=== PATIENT | female | born 1980 | race Caucasian/White ===

== ENCOUNTER 2017-06-19 12:32 | Emergency (ER) | payer OTHER ==
[2017-06-19 13:43] VITALS: BP 112/68; PULSE 86; TEMP 98.4; BMI 21.7
--- NOTE | 2017-06-19 14:43 | PDOC ---
History of Present Illness - General Chief Complaint: Headache Stated Complaint: HEADACHE Time Seen by Provider: 06/19/17 14:25 History Source: Patient Exam Limitations: No Limitations - History of Present Illness Initial Comments: 06/19/17 14:56 37 year old female with history of headaches presents to the ED with left parietal and occipital along with retro-orbital pressure since last Tuesday. Patient states took Motrin 400mg last night and this morning without improvement. Patient also complaining of mild nausea with photo sensitivity without phono sensitivity. Patient states her menstrual cycle did not come this month and is concerned she may be although she has no complaints of abdominal pain, breast tenderness, vaginal bleeding, or lower abdominal pressure. Timing/Duration: reports: 1 week Severity: Yes: moderate Associated Symptoms: reports: other (headache). denies: nausea/vomiting, weakness Past History - Travel Traveled outside of the country in the last 30 days: No Close contact w/someone who was outside of country & ill: No - Past Medical History Allergies/Adverse Reactions: Allergies Allergy/AdvReac Type Severity Reaction Status Date / Time aspirin AdvReac Intermediate Verified 06/19/17 13:37 Home Medications: Ambulatory Orders Unobtainable [Unobtainable] 06/19/17 Hypercholesterolemia: Yes - Surgical History Cholecystectomy: Yes - Reproductive History LMP Normal: Yes Is Patient Now?: No (#): 3 Para: 2 Cervical CA: No Dysfunctional Uterine Bleeding: No Ectopic : No Endometrial CA: No Polycystic Ovaries: No Therapeutic (s) & number: No Tubal Ligation: No Spontaneous : 0 - Immunization History Immunization Up to Date: Yes - Suicide/Smoking/Psychosocial Hx Smoking History: Never smoked Have you smoked in the past 12 months: No Information on smoking cessation initiated: No Hx Alcohol Use: No Drug/Substance Use Hx: No Substance Use Type: None Hx Substance Use Treatment: No Patient Lives Alone: No Lives with/in: spouse/SO Neuro Specific PMHX - Complaint Specific PMHX Migraine: No Review of Systems - Review of Systems Able to Perform ROS?: Yes Constitutional: No: Symptoms Reported HEENTM: No: Symptoms Reported Respiratory: No: Symptoms reported Cardiac (ROS): No: Symptoms Reported ABD/GI: Yes: Nausea : No: Symptoms Reported Neurological: Yes: Headache Endocrine: No: Symptoms Reported Hematologic/Lymphatic: No: Symptoms Reported *Physical Exam - Vital Signs Last Vital Signs Temp Pulse Resp BP Pulse Ox 98.4 F 86 16 112/68 100 06/19/17 13:38 06/19/17 13:38 06/19/17 13:38 06/19/17 13:38 06/19/17 13:38 - Physical Exam General Appearance: Yes: Nourished, Appropriately Dressed. No: Apparent Distress HEENT: positive: EOMI, ARTURO, Pharynx Normal. negative: Pale Conjunctivae Neck: positive: Supple. negative: Tender, Decreased range of motion Gastrointestinal/Abdominal: positive: Soft. negative: Tenderness Extremity: positive: Normal Capillary Refill Integumentary: positive: Normal Color, Warm, Moist Neurologic: positive: Motor Strength 5/5 (ambulatory) Medical Decision Making - Medical Decision Making 06/19/17 14:50 Patient complains of headache with known presentation but states was not relieved with Motrin 2 which it normally is by the second or third dose. Patient also unsure if she is stating she missed her last menstrual period. Patient examined had no neural focal deficits or acute findings. Patient ordered for urine and then can receive Toradol IM along with Zofran. 06/19/17 16:07 Urine preg Negative. Patient states feeling much better after receiving medication. Patient be discharged home with recommendations to take Tylenol. *DC/Admit/Observation/Transfer Diagnosis at time of Disposition: Headache Qualifiers: Headache type: unspecified Headache chronicity pattern: episodic headache Intractability: intractable Qualified Code(s): R51 - Headache; R51 - Headache - Discharge Dispostion Disposition: HOME Condition at time of disposition: Improved - Referrals Referrals: Jada Martinez MD [Primary Care Provider] - - Patient Instructions Printed Discharge Instructions: DI for Headache Additional Instructions: Please take Tylenol 975 mg by mouth every 8 hours for headache. Drink plenty of fluids. Avoid triggers such as loud noise or bright room.
[2017-06-19] MEDS ORDERED: ONDANSETRON *ODT* 4 MG TABLET SL ONE (15:00)
[2017-06-19] MEDS ORDERED: KETOROLAC TROMETHAMINE 60 MG/2 ML VIAL IM ONE (15:00)
[2017-06-19] MEDS ORDERED: KETOROLAC TROMETHAMINE 60 MG/2 ML VIAL ONE (15:18)
[2017-06-19] MEDS ORDERED: ONDANSETRON *ODT* 4 MG TABLET ONE (15:18)
== END 2017-06-19 16:23 | disposition home or self-care (01) ==
LOC: JERFT 12:32
PROC: 3E0233Z Introduction of Anti-inflammatory into Muscle, Percutaneous Approach (ICD-10-PCS; principal; 2017-06-19)
DX: R51 Headache (principal)
CPT/HCPCS: 84703; 96372; 99281-25

== ENCOUNTER 2018-06-17 08:37 | Emergency (ER) | payer OTHER ==
--- NOTE | 2018-06-17 09:06 | PDOC ---
History of Present Illness - General History Source: Patient Exam Limitations: No Limitations - History of Present Illness Initial Comments: 06/17/18 10:00 38-year-old female, , with a past medical history of HLD, gallstones, who presents to the ED with 3 days of epigastric pain. Patient states the pain began suddenly and was initially intermittent but is now constant, pressure- like in sensation, 9/10 in severity, radiating to her back, unaffected by food consumption, and exacerbated with turning to either side. She contacted her PCP , Dr. Linares, who prescribed 240 mg omeprazole, which has helped to alleviate the pain. She has also tried taking mylanta which usually helps to alleviate any mild stomach pains she experiences, but this time it did not help. Patient s pain is accompanied by nausea and lightheadedness but she denies any vomiting. The patient has been been able to eat and drink but states that she gets full fast. She reports that the pain is similar to her previous episode of gallstones. She reports having a cholecystectomy performed in 2008. Patients last bowel movement was this morning and was normal. Patient states that she is sexually active with one partner and denies any history of sexually transmitted diseases. Last menstrual period was on June 01 and was normal. She denies any vaginal bleeding or vaginal discharge. She also endorses suprapubic pain and has followed up with [facility] doctor who had imaging studies ordered that revealed a small ovarian cyst. The patient denies any fever, chills, cough, vomiting, diarrhea, or constipation. She denies any chest pain or shortness of breath. She denies any dysuria, frequency, urgency, hesitancy, or hematuria. Allergies: aspirin. Social History: None reported. Surgical History: Cholecystectomy. PCP: Dr. Linares <Shannon Logan - Last Filed: 06/17/18 12:13> <Tiffani Loyd - Last Filed: 06/17/18 13:04> - General Chief Complaint: Pain, Acute Stated Complaint: ABDOMINAL PAIN Time Seen by Provider: 06/17/18 09:06 Past History <Shannon Logan - Last Filed: 06/17/18 12:13> - Past Medical History COPD: No CHF: No Hypercholesterolemia: Yes - Surgical History Cholecystectomy: Yes - Reproductive History (#): 3 Para: 2 Cervical CA: No Dysfunctional Uterine Bleeding: No Ectopic : No Endometrial CA: No Polycystic Ovaries: No Therapeutic (s) & number: No Tubal Ligation: No Spontaneous : 0 - Immunization History Immunization Up to Date: Yes - Suicide/Smoking/Psychosocial Hx Smoking History: Never smoked Have you smoked in the past 12 months: No Information on smoking cessation initiated: No Hx Alcohol Use: No Drug/Substance Use Hx: No Substance Use Type: None Hx Substance Use Treatment: No <Tiffani Loyd - Last Filed: 06/17/18 13:04> - Past Medical History Allergies/Adverse Reactions: Allergies Allergy/AdvReac Type Severity Reaction Status Date / Time aspirin AdvReac Intermediate Verified 06/17/18 08:42 Home Medications: Ambulatory Orders NK [No Known Home Medication] 06/17/18 Review of Systems - Review of Systems Able to Perform ROS?: Yes Comments:: 06/17/18 10:00 GENERAL/CONSTITUTIONAL: No fever or chills. No weakness. HEAD, EYES, EARS, NOSE AND THROAT: No change in vision. No ear pain or discharge. No sore throat. CARDIOVASCULAR: (+)Lightheadedness. No chest pain or shortness of breath. RESPIRATORY: No cough, wheezing, or hemoptysis. GASTROINTESTINAL: (+)Nausea, abdominal pain. No vomiting, diarrhea or constipation. GENITOURINARY: No dysuria, frequency, or change in urination. MUSCULOSKELETAL: (+)Back pain. No joint swelling or pain. No neck pain. SKIN: No rash NEUROLOGIC: No headache, vertigo, loss of consciousness, or change in strength/ sensation. ENDOCRINE: No increased thirst. No abnormal weight change. HEMATOLOGIC/LYMPHATIC: No anemia, easy bleeding, or history of blood clots. ALLERGIC/IMMUNOLOGIC: No hives or skin allergy. <Shannon Logan - Last Filed: 06/17/18 12:13> *Physical Exam - Vital Signs Last Vital Signs Temp Pulse Resp BP Pulse Ox 97.3 F L 79 18 129/80 100 06/17/18 08:51 06/17/18 08:51 06/17/18 08:51 06/17/18 08:51 06/17/18 08:51 - Physical Exam Comments: 06/17/18 10:02 GENERAL: Awake, alert, and fully oriented, in no acute distress HEAD: No signs of trauma EYES: PERRLA, EOMI, sclera anicteric, conjunctiva clear ENT: Auricles normal inspection, hearing grossly normal, nares patent, oropharynx clear without exudates. Moist mucosa NECK: Normal ROM, supple, no lymphadenopathy, JVD, or masses LUNGS: Breath sounds equal, clear to auscultation bilaterally. No wheezes, and no crackles HEART: Regular rate and rhythm, normal S1 and S2, no murmurs, rubs or gallops ABDOMEN: (+)Tenderness to palpation of the epigastrium. Soft, normoactive bowel sounds. No guarding, no rebound. No masses. EXTREMITIES: Normal range of motion, no edema. No clubbing or cyanosis. No cords, erythema, or tenderness NEUROLOGICAL: Cranial nerves II through XII grossly intact. Normal speech, normal gait SKIN: Warm, Dry, normal turgor, no rashes or lesions noted. <Shannon Logan - Last Filed: 06/17/18 12:13> - Vital Signs Last Vital Signs Temp Pulse Resp BP Pulse Ox 97.3 F L 79 18 129/80 100 06/17/18 08:51 06/17/18 08:51 06/17/18 08:51 06/17/18 08:51 06/17/18 08:51 <Tiffani Loyd - Last Filed: 06/17/18 13:04> ED Treatment Course - LABORATORY CBC & Chemistry Diagram: 06/17/18 09:40 06/17/18 09:40 - ADDITIONAL ORDERS Additional order review: Laboratory Results 06/17/18 09:03 Urine Color Yellow Urine Appearance Clear Urine pH 8.5 H Ur Specific [place] 1.020 Urine Protein Negative Urine Glucose (UA) Negative Urine Ketones Negative Urine Blood 1+ H Urine Nitrite Negative Urine Bilirubin Negative Urine Urobilinogen 0.2 Ur Leukocyte Esterase Negative 06/17/18 09:40 RBC 4.59 MCV 86.3 MCHC 33.2 RDW 13.4 MPV 8.5 Neutrophils % 65.9 Lymphocytes % 27.2 D Monocytes % 5.5 Eosinophils % 0.7 Basophils % 0.7 - RADIOLOGY Radiology Studies Ordered: 06/17/18 12:14 Abdomen/Pelvis CT was reviewed by Dr. Loyd and over-read by Radiology. Sequential axial images were obtained from the domes of the diaphragms through the symphysis pubis following the administration of intravenous contrast material. The lung bases are clear. The liver, spleen, pancreas, adrenal glands and kidneys demonstrate no significant abnormalities. The gallbladder has been removed. There is prominence of biliary tree without obvious obstruction. There is no evidence of pneumoperitoneum, bowel obstruction or intra-abdominal abscess. There is no CT evidence of acute appendicitis or diverticulitis. There is no evidence of intra-abdominal or retroperitoneal lymphadenopathy or fluid collections. Examination of the pelvis demonstrates no evidence of pelvic masses, fluid collections or lymphadenopathy. There is a 2.7 cm left ovarian cyst. There is no evidence of acute bony abnormalities. IMPRESSION: No evidence of acute pathology within the abdomen or pelvis. <Shannon Logan - Last Filed: 06/17/18 12:13> - LABORATORY CBC & Chemistry Diagram: 06/17/18 09:40 06/17/18 09:40 <Tiffani Loyd - Last Filed: 06/17/18 13:04> Medical Decision Making - Medical Decision Making 06/17/18 13:00 Pt presents to the ED complaining of epigastric pain. Initial differential included pancreatitis, gastritis, less likely ectopic . Labs including lipase and u preg were negative, but patient had persistent pain. Ct performed to rule out other intrabdominal pathology and is negative. Will discharge home with follow up with PMD. <Tiffani Loyd - Last Filed: 06/17/18 13:04> *DC/Admit/Observation/Transfer - Attestations Scribe Attestion: 06/17/18 10:03 Documentation prepared by Shannon Logan, acting as medical data entry clerk for Tiffani Loyd MD. <Shannon Logan - Last Filed: 06/17/18 12:13> - Discharge Dispostion Decision to Admit order: No <Tiffani Loyd - Last Filed: 06/17/18 13:04> Diagnosis at time of Disposition: Abdominal pain Qualifiers: Abdominal location: epigastric Qualified Code(s): R10.13 - Epigastric pain - Discharge Dispostion Disposition: HOME Condition at time of disposition: Good - Patient Instructions Printed Discharge Instructions: DI for Abdominal Pain-Adult Additional Instructions: return to the ED for severe pain, pain with nausea and vomiting, pain with fever , other new or worsening symptoms. Make sure that you call your doctor for follow up on Tuesday.
[2018-06-17 09:27] LABS: PH,URINE 8.5 (5.0-8.0); URINE APPEARANCE Clear; URINE BILIRUBIN Negative (<2.0 mg/dL); URINE COLOR Yellow; URINE GLUCOSE (UA) Negative (NEGATIVE); URINE KETONE Negative (NEGATIVE); URINE LEUK ESTERASE Negative (NEGATIVE); URINE NITRITE Negative (NEGATIVE); URINE PROTEIN Negative (NEGATIVE); URINE UROBILINOGEN 0.2 mg/dL (0.2-1.0)
[2018-06-17] MEDS ORDERED: FAMOTIDINE 20 MG/50 ML IVPB 20 MG/50 ML MG IVPB ONE ×2 (09:42→09:44)
[2018-06-17 09:53] VITALS: BMI 25.4
[2018-06-17 09:56] LABS: BASO % 0.7 % (0-2.0); EOS % 0.7 % (0-4.5); HEMATOCRIT 39.6 % (32.4-45.2); HEMOGLOBIN 13.2 GM/dL (10.7-15.3); LYMPH % 27.2 % (8-40); MCH 28.7 pg (25.7-33.7); MCHC 33.2 g/dl (32.0-36.0); MEAN CELL VOLUME 86.3 fl (80-96); MEAN PLT VOLUME 8.5 fl (7.5-11.1); MONO % 5.5 % (3.8-10.2); NEUT % 65.9 % (42.8-82.8); PLATELET COUNT 485 K/MM3 (134-434); RBC 4.59 M/mm3 (3.60-5.2); RDW 13.4 % (11.6-15.6); WHITE BLOOD COUNT 10.4 K/mm3 (4.0-10.0)
[2018-06-17 10:05] LABS: EPI CELLS RARE /HPF (FEW); URINE BACTERIA RARE /hpf (NONE SEEN); URINE MUCUS RARE
[2018-06-17] MEDS ORDERED: ACETAMINOPHEN 1000 MG/100 ML VIAL (NON FORMULARY) IVPB ONE (10:29)
[2018-06-17] MEDS ORDERED: ACETAMINOPHEN INJECTION 100 ML IVPB ONE (10:34)
[2018-06-17 10:41] LABS: ALBUMIN 3.4 g/dl (3.4-5.0); ALK PHOS 96 U/L (45-117); ANION GAP 10 MMOL/L (8-16); BILIRUBIN,TOTAL 0.6 mg/dL (0.2-1); BLOOD UREA NITROGEN 7 mg/dL (7-18); CALCIUM 8.7 mg/dL (8.5-10.1); CHLORIDE 108 mmol/L (98-107); CO2 21 mmol/L (21-32); CREATININE 0.6 mg/dL (0.55-1.3); GLUCOSE,RANDOM 69 mg/dL (74-106); LIPASE 122 U/L (73-393); POTASSIUM 4.8 mmol/L (3.5-5.1); SGOT/AST 19 U/L (15-37); SGPT/ALT 24 U/L (13-61); SODIUM 139 mmol/L (136-145)
[2018-06-17 11:03] LABS: HCG,QUALITATIVE URINE Negative
[2018-06-17] MEDS ORDERED: morphine CARPU-JECT 4 MG/1 ML DISP.SYRIN IVPUSH ONE (12:25)
[2018-06-17] MEDS ORDERED: morphine SULFATE 4 MG/ML VIAL ONE (12:37)
[2018-06-17 13:19] VITALS: BP 134/86; PULSE 78; TEMP 98
== END 2018-06-17 13:19 | disposition home or self-care (01) ==
LOC: JER 08:37
PROC: 3E033GC Introduction of Other Therapeutic Substance into Peripheral Vein, Percutaneous Approach (ICD-10-PCS; principal; 2018-06-17)
PROC: 3E033NZ Introduction of Analgesics, Hypnotics, Sedatives into Peripheral Vein, Percutaneous Approach (ICD-10-PCS; 2018-06-17)
PROC: 3E033NZ Introduction of Analgesics, Hypnotics, Sedatives into Peripheral Vein, Percutaneous Approach (ICD-10-PCS; 2018-06-17)
DX: R10.13 Epigastric pain (principal); E78.5 Hyperlipidemia, unspecified; Z87.19 Personal history of other diseases of the digestive system
CPT/HCPCS: 36415; 74177-TC; 80053; 81003; 81015; 83690; 84703; 85025; 96365; 96375; 99283-25; J0131

== ENCOUNTER 2018-12-19 11:07 | Day surgery (SDC) | payer OTHER ==
[2018-12-19 12:19] VITALS: BMI 25.0
[2018-12-19] MEDS ORDERED: ACETAMINOPHEN 325 MG TABLET (FP) ONE (14:44)
[2018-12-19 14:45] VITALS: TEMP 97.5
[2018-12-19 15:46] VITALS: BP 112/74; PULSE 79
--- NOTE | 2018-12-21 16:01 | PATH ---
Surgical Pathology Report Patient Name: MIRLANDE COPE [facility]. Rec. #: [id number] /Age/Gender: 1980 (Age: 38) / F Account: [id number] Location: ASU-ENDOSCOPY Taken: 12/19/2018 Received: 12/20/2018 Reported: 12/21/2018 Physicians: Sammy Gilliland D.O. Specimen(s) Received A: RIGHT COLON BX B: TRANSVERSE COLON BX C: DESCENDING COLON BX D: SIGMOID COLON E: RECTUM Clinical History Diarrhea, abdominal pain Postoperative diagnosis: Diverticulosis Final Diagnosis A. RIGHT COLON, BIOPSY: COLONIC MUCOSA WITH NO SIGNIFICANT PATHOLOGIC CHANGE. NO HISTOLOGIC EVIDENCE OF COLITIS. B. TRANSVERSE COLON, BIOPSY: COLONIC MUCOSA WITH NO SIGNIFICANT PATHOLOGIC CHANGE. NO HISTOLOGIC EVIDENCE OF COLITIS. C. DESCENDING COLON, BIOPSY: COLONIC MUCOSA WITH NO SIGNIFICANT PATHOLOGIC CHANGE. NO HISTOLOGIC EVIDENCE OF COLITIS. D. SIGMOID COLON, BIOPSY: COLONIC MUCOSA WITH NO SIGNIFICANT PATHOLOGIC CHANGE. NO HISTOLOGIC EVIDENCE OF COLITIS. E. RECTUM, BIOPSY: COLONIC MUCOSA WITH NO SIGNIFICANT PATHOLOGIC CHANGE. NO HISTOLOGIC EVIDENCE OF PROCTITIS. Electronically Signed Floyd Marquez M.D. Gross Description A. Received in formalin, labeled "biopsy right colon" are 2 torres, irregular portions of soft tissue averaging 0.3 cm. in greatest dimension. The specimens are submitted in toto in one cassette. B. Received in formalin, labeled "biopsy transverse colon" are 3 torres, irregular portions of soft tissue ranging from 0.2-0.5 cm. in greatest dimension. The specimens are submitted in toto in one cassette. C. Received in formalin, labeled "biopsy descending colon" are 3 torres, irregular portions of soft tissue ranging from 0.1-0.5 cm. in greatest dimension. The specimens are submitted in toto in one cassette. D. Received in formalin, labeled "biopsy sigmoid colon" is a torres, irregular portion of soft tissue measuring 0.5 cm. in greatest dimension. The specimen is submitted in toto in one cassette. E. Received in formalin, labeled "biopsy rectum" are 3 torres, irregular portions of soft tissue ranging from 0.2-0.5 cm. in greatest dimension. The specimens are submitted in toto in one cassette. 12/20/2018 saudi12/20/2018
== END 2018-12-19 15:32 | disposition home or self-care (01) ==
LOC: JASU-ENDO 11:07
PROVIDERS: ATTEND Internal Medicine Gastroenterology
PROC: 0DBE8ZX Excision of Large Intestine, Via Natural or Artificial Opening Endoscopic, Diagnostic (ICD-10-PCS; principal; 2018-12-19 11:30)
DX: K57.30 Diverticulosis of large intestine without perforation or abscess without bleeding (principal); K64.8 Other hemorrhoids
CPT/HCPCS: 84703; 87045; 87046; 87177; 87186; 87209; 88305-TC

== ENCOUNTER 2019-02-05 18:23 | Emergency (ER) | payer OTHER | END 2019-02-06 00:02 | disposition home or self-care (01) | LOC: JER 02-06 00:02 | DX: R07.9 Chest pain, unspecified (principal); R51 Headache ==

== ENCOUNTER 2019-07-14 15:22 | Observation (INO) | payer OTHER ==
--- NOTE | 2019-07-14 17:36 | PDOC ---
Attending Attestation - Resident Resident Name: Marty March - ED Attending Attestation I have performed the following: I have examined & evaluated the patient, The case was reviewed & discussed with the resident, I agree w/resident's findings & plan, Exceptions are as noted - HPI HPI: 07/14/19 17:34 Ms. Jose L Maurer is a 39 yo F who presents to the ER with a complaint of weakness and numbness Patient was in her usual state of health while at home she developed first a headache followed by new neurological signs and symptoms Patient notes that the entire right side of her body feels very cold This is coming in waves It is actually not pain, it is a sensation of cold As a result of her symptoms, patient feels weak Patient has had no prior episodes like this. No head trauma, no neck trauma No nausea, vomiting Patient denies chest pain, palpitations, shortness of breath Patient denies recent stressful events in her life Patient denies use of drugs or alcohol (this was confirmed by her boyfriend) 07/14/19 17:52 - Physicial Exam PE: 07/14/19 17:36 GENERAL: The patient is in no acute distress. ENT: Ears normal, nares patent, oropharynx clear without exudates. Moist mucous membranes. NECK: Normal range of motion, supple LUNGS: Breath sounds equal, clear to auscultation bilaterally. No wheezes, and no crackles. HEART:Regular rate and rhythm, normal S1 and S2 without murmur, rub or gallop. ABDOMEN: Soft, nontender, normoactive bowel sounds. EXTREMITIES: Normal range of motion, no edema. NEUROLOGICAL: Cranial nerves II through XII grossly intact. Normal speech. See NIHSS SKIN: Warm, Dry, normal turgor, no rashes or lesions noted. - Medical Decision Making 07/14/19 17:59 At this moment, patient presents to the emergency department with other new neurological complaints NIHSS is 1 Patient upon observation is having waves of an overwhelming sense of cold on her entire right side, without weakness No history of MS, or other neurological dysfunction Code montelongo called We will send lab Awaiting CT report Awaiting report of lab We do urine toxicology We will also give a small dose of Ativan We will admit 07/14/19 18:07 FINDINGS: The brain parenchymal architecture appears normal, with preservation of the cunningham -white differentiation. There is no acute intracranial hemorrhage, mass effect or midline shift. No abnormal intra-axial or extra-axial fluid collection is seen. The periventricular white matter is unremarkable. The ventricles and basilar cisterns are maintained. The bones of the calvarium and imaged skull base demonstrate no acute abnormality. The imaged paranasal sinuses and mastoid air cells : Partial opacification of the right ethmoid air cells. IMPRESSION: 1. No acute territorial infarct, hemorrhage, or space-occupying mass 07/14/19 18:07 Pt states she is starting to feel better 07/14/19 18:58 EKG: Twelve-lead EKG was performed and reviewed by me. There is normal sinus rhythm with a normal rate. The axis is normal. The intervals are normal. There are no ST or T wave abnormalities. Impression: Normal twelve-lead EKG NIH Stroke Scale - Last Known Well Date/Time & Onset Date Last Known Well: 07/14/19 Time Last Known Well: 14:30 - Initial Evaluation Level of consciousness: Alert Ask patient the month and their age: Answers both correctly Ask patient to open & close eyes; make fist and let go: Obeys both correctly Best gaze (horizontal eye movement): Normal Visual field testing: No visual field loss Facial paresis (Show teeth/raise eyebrows/close eyes tight): Normal symmetrical movement Motor Function: Left Arm: Normal Motor Function: Right Arm: Normal (extends arm 90 (or 45) degrees for 10 seconds without drift Motor Function: Left Leg: Normal (extends leg 30 degrees for 5 seconds without drift) Motor Function: Right Leg: Drift Limb Ataxia: No ataxia Sensory(Use pinprick test arms,legs,trunk,face/side to side): Normal Best language (Describe picture, name items, read sentences): No Aphasia Dysarthria (read several words): Normal articulation Extinction and Inattention: No abnormality - Total Score NIH Stroke Scale Score: 1
[2019-07-14] MEDS ORDERED: SODIUM CHLORIDE 1,000 ML IV SCH (17:45)
--- NOTE | 2019-07-14 19:01 | PDOC ---
History of Present Illness - General Chief Complaint: CVA/TIA Stated Complaint: RIGHT SIDE NUMBNESS Time Seen by Provider: 07/14/19 17:24 History Source: Patient Exam Limitations: No Limitations - History of Present Illness Initial Comments: 07/14/19 21:33 39 yo female no sig pmh presents to the ED with sudden onset headache and right sided weakness and numbness with intermittent coldness. Last well known 2 30 pm. Pt reports resting at home when the stated symptoms began and proceeded to the ED. Pt does not have hx of SALAS, seizures, recent trauma, FHX seizures, anxiety, depression, pt has never had a similar episode in the past. Denies recent travel, recent illness, CP, SOB, abdominal pain, back pain NIH Stroke Scale - Last Known Well Date/Time & Onset Date Last Known Well: 07/14/19 Time Last Known Well: 14:30 - Initial Evaluation Level of consciousness: Alert Ask patient the month and their age: Answers both correctly Ask patient to open & close eyes; make fist and let go: Obeys both correctly Best gaze (horizontal eye movement): Normal Visual field testing: No visual field loss Facial paresis (Show teeth/raise eyebrows/close eyes tight): Normal symmetrical movement Motor Function: Left Arm: Normal Motor Function: Right Arm: Normal (extends arm 90 (or 45) degrees for 10 seconds without drift Motor Function: Left Leg: Normal (extends leg 30 degrees for 5 seconds without drift) Motor Function: Right Leg: Normal (extends leg 30 degrees for 5 seconds without drift) Limb Ataxia: No ataxia Sensory(Use pinprick test arms,legs,trunk,face/side to side): Mild to moderate decrease in sensation Best language (Describe picture, name items, read sentences): No Aphasia Dysarthria (read several words): Normal articulation Extinction and Inattention: No abnormality - Total Score NIH Stroke Scale Score: 1 Past History - Past Medical History Allergies/Adverse Reactions: Allergies Allergy/AdvReac Type Severity Reaction Status Date / Time amoxicillin AdvReac Severe Verified 07/14/19 15:37 oxycodone [From OxyContin] AdvReac Severe Verified 07/14/19 15:37 aspirin AdvReac Intermediate Verified 07/14/19 15:37 Home Medications: Ambulatory Orders NK [No Known Home Medication] 06/17/18 COPD: No CHF: No Hypercholesterolemia: Yes - Surgical History Cholecystectomy: Yes (2008) - Reproductive History (#): 3 Para: 2 Cervical CA: No Dysfunctional Uterine Bleeding: No Ectopic : No Endometrial CA: No Polycystic Ovaries: No Therapeutic (s) & number: No Tubal Ligation: No Spontaneous : 0 - Immunization History Immunization Up to Date: Yes - Psycho Social/Smoking Cessation Hx Smoking History: Never smoked Have you smoked in the past 12 months: No Information on smoking cessation initiated: No Hx Alcohol Use: No Drug/Substance Use Hx: No Substance Use Type: None Hx Substance Use Treatment: No Review of Systems - Review of Systems Constitutional: Yes: Other (coldness on the right side of her body). No: Chills , Fever HEENTM: No: Blurred Vision, Double Vision Respiratory: No: Shortness of Breath Cardiac (ROS): No: Chest Pain, Edema ABD/GI: No: Constipated, Diarrhea, Nausea, Vomiting : No: Burning, Dysuria, Frequency, Flank Pain Musculoskeletal: No: Back Pain Integumentary: No: Change in Color Neurological: Yes: Headache, Numbness, Paresthesia, Weakness *Physical Exam - Vital Signs Last Vital Signs Temp Pulse Resp BP Pulse Ox 98.2 F 92 H 18 114/77 97 07/14/19 15:35 07/14/19 15:35 07/14/19 15:35 07/14/19 15:35 07/14/19 15:35 - Physical Exam General Appearance: Yes: Nourished, Appropriately Dressed, Apparent Distress ( complains of painful "coldness" on the entire right side of her body") HEENT: positive: EOMI, ARTURO Neck: positive: Supple. negative: Carotid bruit, Rigidity Respiratory/Chest: positive: Lungs Clear, Normal Breath Sounds. negative: Respiratory Distress, Accessory Muscle Use, Crackles, Rales, Rhonchi, Stridor, Wheezing Cardiovascular: positive: Regular Rhythm, Regular Rate, S1, S2. negative: Edema , JVD, Murmur Vascular Pulses: Dorsalis-Pedis (R): 4+, Doralis-Pedis (L): 4+ Gastrointestinal/Abdominal: positive: Flat, Soft. negative: Pulsatile Mass, Distended, Guarding, Tenderness Musculoskeletal: negative: CVA Tenderness Extremity: positive: Normal Capillary Refill, Normal Inspection, Normal Range of Motion Integumentary: positive: Normal Color, Dry, Warm Neurologic: positive: painter barrel II-XII NML intact, Fully Oriented, Alert, Normal Mood/ Affect, Normal Response, Motor Strength 5/5, Numbness, Sensory Deficit. negative: Facial Droop, Confused, Disoriented ED Treatment Course - LABORATORY CBC & Chemistry Diagram: 07/14/19 21:25 07/14/19 21:25 - ADDITIONAL ORDERS Additional order review: Laboratory Results 07/14/19 17:28 POC Glucometer 101 07/14/19 17:28 POC Glucometer 101 - RADIOLOGY Radiology Studies Ordered: Category Date Time Status HEAD CT (STROKE) [CT] Stat CT Scan 07/14/19 17:33 Taken BRAIN MRI W/O CONTRAST [MRI] Stat MRI 07/14/19 18:37 Ordered Medical Decision Making - Medical Decision Making 07/14/19 18:38 39 yo female no sig pmh presents to the ED with sudden onset headache and right sided weakness and numbness with intermittent coldness. Last well known 2 30 pm. Pt reports resting at home when the stated symptoms began and proceeded to the ED. Pt does not have hx of SALAS, seizures, recent trauma, FHX seizures, anxiety, depression, pt has never had a similar episode in the past. Denies recent travel, recent illness, CP, SOB, abdominal pain, back pain Vitals WNL See stroke scale and PE CT head neg for acute bleed discussed case with Dr. Ferrer, states pt may have a thalamic vasculitis vs seizure vs stroke. Recommends MRI tmr and valproic acid if preg test neg Labs show elevated LDL, statin therapy likely, will defer to medicine team and neuro EKG NSR, no acute signs of ischemia Pt reported a 1 hour time period without wave of coldness however, coldness returned Preg test neg, pt given Valproic Acid given as per neuro Pt admitted to stroke unit Discharge - Discharge Information Problems reviewed: Yes Clinical Impression/Diagnosis: Transient ischemic attack, Cerebrovascular accident (CVA) Condition: Stable - Admission Yes - Follow up/Referral - Patient Discharge Instructions - Post Discharge Activity
[2019-07-14 21:45] LABS: BASO % 1.2 % (0-2.0); EOS % 1.7 % (0-4.5); HEMATOCRIT 41.8 % (32.4-45.2); HEMOGLOBIN 13.9 GM/dL (10.7-15.3); LYMPH % 26.3 % (8-40); MCH 28.7 pg (25.7-33.7); MCHC 33.4 g/dl (32.0-36.0); MEAN PLT VOLUME 8.3 fl (7.5-11.1); MONO % 4.2 % (3.8-10.2); NEUT % 66.6 % (42.8-82.8); PLATELET COUNT 498 K/MM3 (134-434); RBC 4.86 M/mm3 (3.60-5.2); RDW 13.7 % (11.6-15.6); WHITE BLOOD COUNT 12.4 K/mm3 (4.0-10.0)
[2019-07-14 21:54] LABS: INR 0.98 (0.83-1.09); PROTHROMBIN TIME (PATIENT) 11.6 SEC (9.7-13.0)
[2019-07-14 21:57] LABS: ACTIVATED PTT 31.8 SECONDS (25.2-36.5)
[2019-07-14 22:17] LABS: ALBUMIN 3.6 g/dl (3.4-5.0); ALK PHOS 105 U/L (45-117); ANION GAP 4 MMOL/L (8-16); BILIRUBIN,TOTAL 0.4 mg/dL (0.2-1); BLOOD UREA NITROGEN 8.5 mg/dL (7-18); CALCIUM 8.6 mg/dL (8.5-10.1); CHLORIDE 109 mmol/L (98-107); CHOLESTEROL 238 mg/dL (50-200); CO2 24 mmol/L (21-32); CREATININE 0.8 mg/dL (0.55-1.3); GLUCOSE,RANDOM 117 mg/dL (74-106); HDL CHOLESTEROL 42 mg/dL (40-60); LDL CHOLESTEROL (ONLY SJRH) 169 mg/dL (5-100); POTASSIUM 3.9 mmol/L (3.5-5.1); SGOT/AST 19 U/L (15-37); SGPT/ALT 30 U/L (13-61); SODIUM 138 mmol/L (136-145); TRIGLYCERIDES 176 mg/dL (0-150)
[2019-07-14] MEDS ORDERED: VALPROATE SODIUM 500 MG/5 ML VIAL IVPB ONE (22:27)
[2019-07-14] MEDS ORDERED: VALPROATE SODIUM 500 MG/5 ML VIAL ONE (22:45)
--- NOTE | 2019-07-14 23:02 | PN ---
Teaching Attending Note Name of Resident: Marcela Bansal ATTENDING PHYSICIAN STATEMENT I saw and evaluated the patient. I reviewed the resident's note and discussed the case with the resident. I agree with the resident's findings and plan as documented. SUBJECTIVE: Patient is a 39 year old woman with no significant PMH who presents to the ER with sudden onset headache and right sided weakness and numbness with intermittent coldness. Last well known 2:30 pm. Patient reports resting at home when the stated symptoms began and proceeded to the ER. She does not have history of headaches, seizures, recent trauma, family history of seizures, anxiety or depression. She has never had a similar episode in the past. Denies recent travel, recent illness, chest pain, SOB, abdominal pain or back pain. Patient notes that the entire right side of her body feels very cold and it comes in waves. Patient denies recent stressful events in her life. 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 Patient denies use of drugs or alcohol. NIHSS score was 1 in the ER. OBJECTIVE: Alert and not orthostatic Vital Signs Period Temp Pulse Resp BP Sys/Lee Pulse Ox Last 24 Hr 98.2 F-98.2 F 90-92 14-18 114-124/77-86 97-98 HEENT: No Jaundice, eye redness or discharge, PERRLA, EOMI. Normocephalic, atraumatic. External ears are normal and hearing is grossly intact. No nasal discharge. Neck: Supple, nontender. No palpable adenopathy or thyromegaly. No JVD Chest: Good effort. Clear to auscultation and percussion. Heart: Regular. No S3, rub or murmur Abdomen: Not distended, soft, nontender and no HSM. No rebound or guarding. Normal bowel sounds. Ext: Peripheral pulses intact. No leg edema. Skin: Warm and dry. No petechiae, rash or ecchymosis. Neuro: Alert. Oriented x3. CN 2-12 grossly intact. Reduced sensation on the right side of her body. DTR are symmetric. Psych: Appropriate mood and affect. Good insight. Current Medications Generic Name Dose Route Start Last Admin Trade Name Freq PRN Reason Stop Dose Admin Enoxaparin Sodium 40 mg 07/15/19 10:00 Lovenox - SQ DAILY KOFI Sodium Chloride 1,000 mls @ 75 mls/hr 07/15/19 00:33 Normal Saline - IV ASDIR KOFI Home Medications Medication Instructions Recorded NK [No Known Home Medication] 06/17/18 Abnormal Lab Results 07/14/19 07/14/19 21:25 21:25 WBC 12.4 H Plt Count 498 H Absolute Neuts (auto) 8.3 H Chloride 109 H Anion Gap 4 L Random Glucose 117 H C-Reactive Protein 0.5 H Triglycerides 176 H Cholesterol 238 H Total LDL Cholesterol 169 H ASSESSMENT AND PLAN: 1. Numbness on right side of body/Rule out CVA - Etiology unclear. CT head and MRI brain didnot reveal any acute abnormality. EKG shows NSR with no ischemic changes. Will admit to telemetry, do neurochecks, implement fall precautions, get carotid doppler, speech and swallow evaluation, ECHO, C-spine MRI, CRISTAL, Urine toxicology and HbA1c. Leukocytosis is unexplained - will repeat CBC, get UA and CXR stat. Will treat with Lipitor 80 mg qd and ASA 81 mg qd. Consult neurology and PT. 2. DVT prophylaxis - Lovenox 40 mg SQ q 24 hours. 3. Advance directives - Full code
--- NOTE | 2019-07-14 23:59 | HP ---
CHIEF COMPLAINT: R sided numbness/tingling PCP: Dr. Speedy Garcia HISTORY OF PRESENT ILLNESS: 39 [place]-speaking female w/ pmhx of HLD presents to the ED for complaints of R sided numbness/tingling. States at around 2pm today, she started having an sudden onset headache with associated numbness/tingling/pain on the R side of her body extending from her face down to her feet. Says this has never happened to her before and admits to sitting down on her couch when this started. These episodes of numbness/tingling last minutes, but are intermittent. She additionally complains of random bouts of coldness on the R side as well that are intermittent. Denies any loss in muscle strength. Also denies neck pain, vision changes, chest pain, abd pain, urinary symptoms. Admits to some sob, but only when the episodes occur as it causes her some anxiety. Denies and hx of stroke in the past. 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 Allergies amoxicillin Adverse Reaction (Severe, Verified 07/14/19 15:37) oxycodone [From OxyContin] Adverse Reaction (Severe, Verified 07/14/19 15:37) aspirin Adverse Reaction (Intermediate, Verified 07/14/19 15:37) Abd pain HOME MEDICATIONS: Home Medications Medication Instructions Recorded NK [No Known Home Medication] 06/17/18 REVIEW OF SYSTEMS CONSTITUTIONAL: Absent: fever, chills, diaphoresis, generalized weakness, malaise, loss of appetite, weight change HEENT: Absent: rhinorrhea, nasal congestion, throat pain, throat swelling, difficulty swallowing, mouth swelling, ear pain, eye pain, visual changes CARDIOVASCULAR: Absent: chest pain, syncope, palpitations, irregular heart rate, lightheadedness , peripheral edema RESPIRATORY: Absent: cough, shortness of breath, dyspnea with exertion, orthopnea, wheezing, stridor, hemoptysis GASTROINTESTINAL: Absent: abdominal pain, abdominal distension, nausea, vomiting, diarrhea, constipation, melena, hematochezia GENITOURINARY: Absent: dysuria, frequency, urgency, hesitancy, hematuria, flank pain, genital pain MUSCULOSKELETAL: Absent: myalgia, arthralgia, joint swelling, back pain, neck pain SKIN: Absent: rash, itching, pallor HEMATOLOGIC/IMMUNOLOGIC: Absent: easy bleeding, easy bruising, lymphadenopathy, frequent infections ENDOCRINE: Absent: unexplained weight gain, unexplained weight loss, heat intolerance, cold intolerance NEUROLOGIC: +numbness/tingling on entire R side of body Absent: headache, focal weakness or paresthesias, dizziness, unsteady gait, seizure, mental status changes, bladder or bowel incontinence PSYCHIATRIC: Absent: anxiety, depression, suicidal or homicidal ideation, hallucinations. PHYSICAL EXAMINATION Vital Signs - 24 hr 07/14/19 07/14/19 07/14/19 15:35 15:37 17:33 Temperature 98.2 F 98.2 F Pulse Rate 92 H Pulse Rate [ 90 Left Radial] Respiratory 18 14 Rate Blood Pressure 114/77 Blood Pressure 124/86 124/84 [Left Arm] O2 Sat by Pulse 97 98 Oximetry (%) 07/14/19 07/14/19 07/14/19 19:03 21:03 23:37 Temperature Pulse Rate Pulse Rate [ Left Radial] Respiratory Rate Blood Pressure Blood Pressure 114/86 120/86 116/82 [Left Arm] O2 Sat by Pulse Oximetry (%) GENERAL: AAOx3. NAD. Mild uncomfortably in bed. HEENT: AT/NC. EOMI. Moist mucus membranes. NECK: Normal range of motion, supple without lymphadenopathy, JVD, or masses. LUNGS: CTA B/L. No wheezes, rhonchi noted. Symmetric chest rise. HEART: RRR. Normal S1, S2. No murmurs noted. ABDOMEN: Soft, NT/ND. Normoactive bowel sounds in all 4 Qs. MUSCULOSKELETAL: Normal range of motion at all joints. No bony deformities or tenderness. No CVA tenderness. UPPER EXTREMITIES: 2+ pulses, warm, well-perfused. No cyanosis. No clubbing. No peripheral edema. LOWER EXTREMITIES: 2+ dorsalis pedis pulses, warm, well-perfused. No calf tenderness. No peripheral edema. NEUROLOGICAL: Normal speech. Facial muscles intact. Decreased sensation in R side of face and u/l extremities. 5/5 muscle strength in u/l b/l extremities. SKIN: Warm, dry, normal turgor, no rashes or lesions noted, normal capillary refill. CBC, BMP 07/14/19 21:25 07/14/19 21:25 Laboratory Tests 07/14/19 21:25 C-Reactive Protein 0.5 H Triglycerides 176 H Cholesterol 238 H Total LDL Cholesterol 169 H HDL Cholesterol 42 ASSESSMENT/PLAN: 39 [place]-speaking female w/ pmhx of HLD presents to the ED for complaints of R sided numbness/tingling. #R side paresthesia; etiology unclear, possible vasculitis, r/o stroke -Head CT/Brain MRI neg (per prelim read) -Neuro consulted; await further recs -cardiac monitoring -MRI C-spine ordered -Carotid duplex, echo ordered, speech/swallow eval -ANCA panel, ESR/CRP, CRISTAL pending for vasculitis workup -Utox pending -A1c ordered -Lipitor 80; advised ASA 81, however pt states she is allergic to ASA due to adverse effects of GI upset #Leukocytosis; etiology unknown, may be reactive but will r/o infectious source -UA neg -CXR pending #HLD; -Low chol diet -Diet/exercise counseling #Prophylaxis DVT- Lovenox #FEN -IVf -recheck lytes in AM -Low cholesterol diet Dispo -Admit to tele Visit type - Emergency Visit Emergency Visit: Yes ED Registration Date: 07/14/19 Care time: The patient presented to the Emergency Department on the above date and was hospitalized for further evaluation of their emergent condition. - New Patient This patient is new to me today: Yes Date on this admission: 07/15/19 - Critical Care Critical Care patient: No ATTENDING PHYSICIAN STATEMENT I saw and evaluated the patient. I reviewed the resident's note and discussed the case with the resident. I agree with the resident's findings and plan as documented. SUBJECTIVE: OBJECTIVE: ASSESSMENT AND PLAN:
[2019-07-15] MEDS ORDERED: SODIUM CHLORIDE 1,000 ML IV SCH (00:33)
[2019-07-15 02:45] LABS: HYALINE CASTS 1 /lpf (0-8); PH,URINE 6.5 (5.0-8.0); URINE APPEARANCE CLEAR; URINE BACTERIA 115.1 /hpf (NEGATIVE); URINE BILIRUBIN NEGATIVE (NEGATIVE); URINE COLOR YELLOW; URINE GLUCOSE (UA) NEGATIVE (NEGATIVE); URINE KETONE TRACE (NEGATIVE); URINE LEUK ESTERASE NEGATIVE (NEGATIVE); URINE NITRITE NEGATIVE (NEGATIVE); URINE PROTEIN NEGATIVE (NEGATIVE); URINE RBC 9 /hpf (0-4); URINE UROBILINOGEN 0.2 mg/dL (0.2-1.0); URINE WBC 2 /hpf (0-5)
[2019-07-15 03:29] LABS: COCAINE, UR NEGATIVE ng/ml (CUTOFF=300); METHADONE, UR NEGATIVE ng/ml (CUTOFF=300); OPIATES, URI NEGATIVE ng/ml (CUTOFF=300); PHENCYCLIDINE,URINE NEGATIVE ng/ml (CUTOFF=25); URINE AMPHETAMINES NEGATIVE ng/ml (CUTOFF=500); URINE BARBITURATES NEGATIVE ng/ml (CUTOFF=200); URINE BENZODIAZEPINES NEGATIVE ng/ml (CUTOFF=200)
[2019-07-15] MEDS ORDERED: CLOPIDOGREL BISULFATE 300 MG TABLET PO ONE (12:00)
[2019-07-15] MEDS ORDERED: CLOPIDOGREL BISULFATE 300 MG TABLET ONE (12:07)
[2019-07-15] MEDS: ENOXAPARIN NA (PORCINE) 40 MG/0.4 ML DISP.SYRIN SQ SCH (12:48)
--- NOTE | 2019-07-15 13:15 | PN ---
Progress Note (short form) - Note Progress Note: SUBJECTIVE: Reports improvement in symptoms. Headache still present but LUE/LLE numbness/weakness resolving, now with only L hand tingling. OBJECTIVE: Afebrile, Hemodynamicaly Stable. Last Vital Signs Temp Pulse Resp BP Pulse Ox 98.6 F 86 20 103/57 L 99 07/15/19 06:41 07/15/19 06:41 07/15/19 06:41 07/15/19 06:41 07/15/19 06:41 HEENT - Atraumatic, Normocephalic, Neuro - AAO x 3. ARTURO. EOMI. Tone/Power normal all 4 extremities. Reports altered sensation R hand Heart - S1, S2, RRR Lungs - clear to auscultation Abdomen - Soft, non-tender. Bowel Sounds normal. Extremities - no edema, no calf tenderness Laboratory Results - last 24 hr 07/14/19 07/14/19 07/14/19 17:28 21:25 21:25 WBC RBC Hgb Hct MCV MCH MCHC RDW Plt Count MPV Absolute Neuts (auto) Neutrophils % Lymphocytes % Monocytes % Eosinophils % Basophils % Nucleated RBC % ESR PT with INR 11.60 INR 0.98 PTT (Actin FS) 31.8 Sodium 138 Potassium 3.9 Chloride 109 H Carbon Dioxide 24 Anion Gap 4 L BUN 8.5 Creatinine 0.8 Est GFR (CKD-EPI)AfAm 108.39 Est GFR (CKD-EPI)NonAf 93.52 POC Glucometer 101 Random Glucose 117 H Hemoglobin A1c % Calcium 8.6 Total Bilirubin 0.4 AST 19 ALT 30 Alkaline Phosphatase 105 Creatine Kinase 110 Troponin I < 0.02 C-Reactive Protein 0.5 H Total Protein 7.0 Albumin 3.6 Triglycerides 176 H Cholesterol 238 H Total LDL Cholesterol 169 H HDL Cholesterol 42 Serum , Qual Urine Color Urine Appearance Urine pH Ur Specific [place] Urine Protein Urine Glucose (UA) Urine Ketones Urine Blood Urine Nitrite Urine Bilirubin Urine Urobilinogen Ur Leukocyte Esterase Urine WBC (Auto) Urine RBC (Auto) Urine Casts (Auto) U Epithel Cells (Auto) Urine Bacteria (Auto) Opiates Screen Methadone Screen Barbiturate Screen Phencyclidine Screen Ur Amphetamines Screen MDMA (Ecstasy) Screen Benzodiazepines Screen Cocaine Screen U Marijuana (THC) Screen Blood Type Antibody Screen 07/14/19 07/14/19 07/14/19 21:25 21:25 21:25 WBC 12.4 H RBC 4.86 Hgb 13.9 Hct 41.8 MCV 86.0 MCH 28.7 MCHC 33.4 RDW 13.7 Plt Count 498 H MPV 8.3 Absolute Neuts (auto) 8.3 H Neutrophils % 66.6 D Lymphocytes % 26.3 D Monocytes % 4.2 Eosinophils % 1.7 Basophils % 1.2 Nucleated RBC % 0 ESR PT with INR INR PTT (Actin FS) Sodium Potassium Chloride Carbon Dioxide Anion Gap BUN Creatinine Est GFR (CKD-EPI)AfAm Est GFR (CKD-EPI)NonAf POC Glucometer Random Glucose Hemoglobin A1c % Calcium Total Bilirubin AST ALT Alkaline Phosphatase Creatine Kinase Troponin I C-Reactive Protein Total Protein Albumin Triglycerides Cholesterol Total LDL Cholesterol HDL Cholesterol Serum , Qual Negative Urine Color Urine Appearance Urine pH Ur Specific [place] Urine Protein Urine Glucose (UA) Urine Ketones Urine Blood Urine Nitrite Urine Bilirubin Urine Urobilinogen Ur Leukocyte Esterase Urine WBC (Auto) Urine RBC (Auto) Urine Casts (Auto) U Epithel Cells (Auto) Urine Bacteria (Auto) Opiates Screen Methadone Screen Barbiturate Screen Phencyclidine Screen Ur Amphetamines Screen MDMA (Ecstasy) Screen Benzodiazepines Screen Cocaine Screen U Marijuana (THC) Screen Blood Type O POSITIVE Antibody Screen Negative 07/15/19 07/15/19 07/15/19 02:11 02:11 03:54 WBC RBC Hgb Hct MCV MCH MCHC RDW Plt Count MPV Absolute Neuts (auto) Neutrophils % Lymphocytes % Monocytes % Eosinophils % Basophils % Nucleated RBC % ESR PT with INR INR PTT (Actin FS) Sodium Potassium Chloride Carbon Dioxide Anion Gap BUN Creatinine Est GFR (CKD-EPI)AfAm Est GFR (CKD-EPI)NonAf POC Glucometer Random Glucose Hemoglobin A1c % 5.2 Calcium Total Bilirubin AST ALT Alkaline Phosphatase Creatine Kinase Troponin I C-Reactive Protein Total Protein Albumin Triglycerides Cholesterol Total LDL Cholesterol HDL Cholesterol Serum , Qual Urine Color Yellow Urine Appearance Clear Urine pH 6.5 D Ur Specific [place] 1.023 Urine Protein Negative Urine Glucose (UA) Negative Urine Ketones Trace H Urine Blood Trace Urine Nitrite Negative Urine Bilirubin Negative Urine Urobilinogen 0.2 Ur Leukocyte Esterase Negative Urine WBC (Auto) 2 Urine RBC (Auto) 9 Urine Casts (Auto) 1 U Epithel Cells (Auto) 2.0 Urine Bacteria (Auto) 115.1 Opiates Screen Negative Methadone Screen Negative Barbiturate Screen Negative Phencyclidine Screen Negative Ur Amphetamines Screen Negative MDMA (Ecstasy) Screen Negative Benzodiazepines Screen Negative Cocaine Screen Negative U Marijuana (THC) Screen Negative Blood Type Antibody Screen 07/15/19 03:54 WBC RBC Hgb Hct MCV MCH MCHC RDW Plt Count MPV Absolute Neuts (auto) Neutrophils % Lymphocytes % Monocytes % Eosinophils % Basophils % Nucleated RBC % ESR 14 PT with INR INR PTT (Actin FS) Sodium Potassium Chloride Carbon Dioxide Anion Gap BUN Creatinine Est GFR (CKD-EPI)AfAm Est GFR (CKD-EPI)NonAf POC Glucometer Random Glucose Hemoglobin A1c % Calcium Total Bilirubin AST ALT Alkaline Phosphatase Creatine Kinase Troponin I C-Reactive Protein Total Protein Albumin Triglycerides Cholesterol Total LDL Cholesterol HDL Cholesterol Serum , Qual Urine Color Urine Appearance Urine pH Ur Specific [place] Urine Protein Urine Glucose (UA) Urine Ketones Urine Blood Urine Nitrite Urine Bilirubin Urine Urobilinogen Ur Leukocyte Esterase Urine WBC (Auto) Urine RBC (Auto) Urine Casts (Auto) U Epithel Cells (Auto) Urine Bacteria (Auto) Opiates Screen Methadone Screen Barbiturate Screen Phencyclidine Screen Ur Amphetamines Screen MDMA (Ecstasy) Screen Benzodiazepines Screen Cocaine Screen U Marijuana (THC) Screen Blood Type Antibody Screen Current Medications Generic Name Dose Route Start Last Admin Trade Name Freq PRN Reason Stop Dose Admin Atorvastatin Calcium 80 mg 07/15/19 22:00 Lipitor - PO HS KOFI Clopidogrel Bisulfate 75 mg 07/16/19 10:00 Plavix - PO DAILY KOFI Enoxaparin Sodium 40 mg 07/15/19 10:00 07/15/19 12:48 Lovenox - SQ 40 mg DAILY KOFI Administration Sodium Chloride 1,000 mls @ 75 mls/hr 07/15/19 00:33 07/15/19 01:40 Normal Saline - IV 75 mls/hr ASDIR KOFI Administration Home Medications Medication Instructions Recorded NK [No Known Home Medication] 06/17/18 ASSESSMENT/PLAN: 39 year old female with history of Migraine Headaches, presents with rapid onset Headache, with associated RUE/RLE weakness/numbness/tingling. 1. Complicated Migraine versus CVA (less likely) CT Brain negative for acute findings MRI Brain reported neg preliminarily, awaiting official report. Echo, Cartotid Duplex ordered. Neurochecks. Neurology consult. Allergic to Aspirin - Loaded with Plavix and started on Lipitor. MRI C-Spine, autoimmune work-up including CRISTAL/ANCA pending. 2. HLD - LDL 169, TG 176 - started on Lipitor. DVT Px - Lovenox SQ Visit type - Emergency Visit Emergency Visit: Yes ED Registration Date: 07/14/19 Care time: The patient presented to the Emergency Department on the above date and was hospitalized for further evaluation of their emergent condition. - New Patient This patient is new to me today: Yes Date on this admission: 07/15/19 - Critical Care Critical Care patient: No - Discharge Referral Referred to [facility] No
--- NOTE | 2019-07-15 13:39 | EKG ---
Test Reason : Blood Pressure : / mmHG Vent. Rate : 089 BPM Atrial Rate : 089 BPM P-R Int : 142 ms QRS Dur : 070 ms QT Int : 356 ms P-R-T Axes : 043 051 032 degrees QTc Int : 433 ms NORMAL SINUS RHYTHM NORMAL ECG WHEN COMPARED WITH ECG OF 05-FEB-2019 18:40, NO SIGNIFICANT CHANGE WAS FOUND Confirmed by MD Chandra Edward ([id number]) on 07/15/2019 1:39:03 PM Referred By: Confirmed By:Godwin Chandra MD
[2019-07-15 15:56] VITALS: BMI 26.1
[2019-07-15] MEDS ORDERED: diazePAM 2 MG TABLET PO ONE (20:25)
--- NOTE | 2019-07-15 21:44 | CON.NEURO ---
Consult Consult Specialty:: NEUROLOGY-MICAELA LEWIS - History of Present Illness History of Present Illness: Patient is a 39 year old woman with no significant PMH who presents to the ER with sudden onset headache and right sided weakness and numbness with intermittent coldness left face/arm/leg and sensation of numbness on same side, all symptoms are less since this am, staters Angel is helping her . Last well known 2:30 pm. Patient reports resting at home when the stated symptoms began and proceeded to the ER. She does not have history of headaches, seizures, recent trauma, family history of seizures, anxiety or depression. She has never had a similar episode in the past. Denies recent travel, recent illness, chest pain, SOB, abdominal pain or back pain. Patient notes that the entire right side of her body feels very cold and it comes in waves. Patient denies recent stressful events in her life. 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 Patient denies use of drugs or alcohol. NIHSS score was 1 in the ER. -Pt. tells me she has a hx. of migraine HAsx years, near daily holocephalgic HAs x 3 years+photo/phonophobia+nausea. Being tereated by Dr. Sonny Guerrero, on prn Sumatriptan, takes daily 1-2tabs of Advil. I asked Ed to place on depacon yesterday.With SALAS has scintillations lasting minutes prior to and during onset of SALAS. Sister has migraine. - Past Medical History ...LMP: 07/07/16 - Past Surgical History Past Surgical History: Yes: - Alcohol/Substance Use Hx Alcohol Use: No - Smoking History Smoking history: Never smoked Have you smoked in the past 12 months: No - Social History History of Recent Travel: No Home Medications - Allergies Allergies/Adverse Reactions: Allergies Allergy/AdvReac Type Severity Reaction Status Date / Time amoxicillin AdvReac Severe Verified 07/14/19 15:37 oxycodone [From OxyContin] AdvReac Severe Verified 07/14/19 15:37 aspirin AdvReac Intermediate Verified 07/14/19 15:37 - Home Medications Home Medications: Ambulatory Orders NK [No Known Home Medication] 06/17/18 Physical Exam-Neuro Vital Signs: Vital Signs Temperature 98.6 F 07/15/19 18:00 Pulse Rate 92 H 07/15/19 18:00 Respiratory Rate 18 07/15/19 18:00 Blood Pressure 111/58 L 07/15/19 18:00 O2 Sat by Pulse Oximetry (%) 98 07/15/19 15:59 Labs: CBC, BMP 07/14/19 21:25 07/14/19 21:25 INR, PTT INR 0.98 (0.83-1.09) 07/14/19 21:25 - Neuro Exam DTR's: 2+ Left Bicep, 2+ Right Bicep, 2+ Left Tricep, 2+ Right Tricep, 2+ Left Brachioradialis, 2+ Right Brachioradialis, 2+ Left Achilles, 2+ Right Achilles Response to light touch: Abnormal (mildly diminished left touch with"cold" dysesthesias in left arm/leg) Motor Strength: 5/5: Left Arm, Right Arm, Left Leg, Right Leg Gait: Normal Imaging - Results MRI: Report Reviewed (Reported without deficit.) Assessment/Plan Migraine with aura, now presenting with status migrainosus and sensory deficit/ dysesthesias. Would cont. Depacon, add Decadron 4mg bid with omeprazole and request Dr. guerrero to follow tomorrow. Thank you, Rachel Ferrer MD
[2019-07-15] MEDS ORDERED: ATORVASTATIN CA 80 MG TABLET (FP) PO SCH (22:00)
[2019-07-15] MEDS ORDERED: PANTOPRAZOLE SODIUM 40 MG VIAL IVPUSH SCH (22:52)
[2019-07-15] MEDS ORDERED: DEXAMETHASONE SOD PHOSPHATE 4 MG/1 ML VIAL IVPUSH SCH ×4 (23:00→23:30)
[2019-07-15] MEDS: VALPROATE SODIUM 500 MG/5 ML VIAL IVPB SCH (23:13)
[2019-07-15] MEDS ORDERED: PANTOPRAZOLE SODIUM 40 MG VIAL IVPB ONE (23:15)
[2019-07-16] MEDS ORDERED: DEXAMETHASONE SOD PHOSPHATE 4 MG/1 ML VIAL IVPUSH SCH ×2 (02:00→10:00)
[2019-07-16] MEDS ORDERED: ACETAMINOPHEN 325 MG TABLET (FP) PO PRN (07:58)
--- NOTE | 2019-07-16 09:56 | CON.NEURO ---
Consult - Past Medical History ...LMP: 07/07/16 - Past Surgical History Past Surgical History: Yes: - Alcohol/Substance Use Hx Alcohol Use: No - Smoking History Smoking history: Never smoked Have you smoked in the past 12 months: No - Social History History of Recent Travel: No Home Medications - Allergies Allergies/Adverse Reactions: Allergies Allergy/AdvReac Type Severity Reaction Status Date / Time amoxicillin AdvReac Severe Verified 07/14/19 15:37 oxycodone [From OxyContin] AdvReac Severe Verified 07/14/19 15:37 aspirin AdvReac Intermediate Verified 07/14/19 15:37 - Home Medications Home Medications: Ambulatory Orders NK [No Known Home Medication] 06/17/18 Physical Exam-Neuro Vital Signs: Vital Signs Temperature 98.0 F 07/16/19 08:29 Pulse Rate 100 H 07/16/19 08:29 Respiratory Rate 20 07/16/19 08:29 Blood Pressure 117/60 07/16/19 08:29 O2 Sat by Pulse Oximetry (%) 99 07/16/19 07:00 Labs: CBC, BMP 07/14/19 21:25 07/14/19 21:25 INR, PTT INR 0.98 (0.83-1.09) 07/14/19 21:25 Assessment/Plan cc Severe headache and right sided numbness HPI 39 year old female history of HLD,Cholecystectomy presented to ed for right sided numbness and tingling including face, arm and leg. Paitent had mri of brain done and carotid ultrasound it is normal. patient do hvae headhace for years and has been diagnosed with migraine and had everyday headache. SHe denies nay toxic habits, Patient was seen with her at bedside . 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 Allergies amoxicillin Adverse Reaction (Severe, Verified 07/14/19 15:37) oxycodone [From OxyContin] Adverse Reaction (Severe, Verified 07/14/19 15:37) aspirin Adverse Reaction (Intermediate, Verified 07/14/19 15:37) Abd pain HOME MEDICATIONS: Home Medications Medication Instructions Recorded NK [No Known Home Medication] 06/17/18 ROS,FH, SH is reviewed in chart NEUROLOGICAL EXAMINATION Alert oriented x 3, speech is normal, neck is supple eomi, pupils reactive and no face asymmetry moving all extremity sensation is diminishd on right face, arm and leg no motor weakness is identified mri of brain and carotid ultrasound is normal Assessment/Plan 39 year old female history of hld, Cholecystectomy , migraine came with severe headache and hvaing right , arm , face and leg numbness. Her mri of brain is normal. SHe was given depakote and decadron and it is not heling her. Suspect Complex Migraine Plan: I would start nortripytline 25 mg po bid - Life style modifications wer discussed I suggest to give her dose of toradol, benadryl and compazine follow up outpatient can have mri of c spine as previously planned Thanking you so much Sonny Etienne MD
[2019-07-16] MEDS ORDERED: PROCHLORPERAZINE INJECTION 10 MG/2 ML VIAL IVPB ONE (09:57)
[2019-07-16] MEDS ORDERED: KETOROLAC TROMETHAMINE 30 MG/1 ML VIAL IVPUSH ONE (09:57)
[2019-07-16] MEDS ORDERED: PANTOPRAZOLE SODIUM 40 MG VIAL IVPUSH SCH (10:00)
[2019-07-16] MEDS ORDERED: CLOPIDOGREL BISULFATE 75 MG TABLET (FP) PO SCH (10:00)
[2019-07-16] MEDS ORDERED: PANTOPRAZOLE 20 MG TABLET (FP) PO SCH (10:00)
[2019-07-16] MEDS ORDERED: NORTRIPTYLINE HCL 25 MG CAPSULE PO SCH (10:00)
[2019-07-16] MEDS ORDERED: LORazepam 2 MG/ML SDV VIAL IVPUSH ONE (10:11)
[2019-07-16] MEDS ORDERED: ATORVASTATIN CA 80 MG TABLET (FP) PO SCH (10:12)
[2019-07-16] MEDS: VALPROATE SODIUM 500 MG/5 ML VIAL IVPB SCH (10:21)
[2019-07-16] MEDS: ENOXAPARIN NA (PORCINE) 40 MG/0.4 ML DISP.SYRIN SQ SCH (10:32)
--- NOTE | 2019-07-16 11:03 | PN ---
Teaching Attending Note Name of Resident: Derick Nix ATTENDING PHYSICIAN STATEMENT I saw and evaluated the patient. I reviewed the resident's note and discussed the case with the resident. I agree with the resident's findings and plan as documented. SUBJECTIVE: Reports worsening RUE/RLE tingling and cold sensation. Headache resolved. No visual disturbance. No limb numbness/weakness. OBJECTIVE: Afebrile, Hemodynamicaly Stable. Last Vital Signs Temp Pulse Resp BP Pulse Ox 98.0 F 100 H 20 117/60 99 07/16/19 08:29 07/16/19 08:29 07/16/19 08:29 07/16/19 08:29 07/16/19 07:00 HEENT - Atraumatic, Normocephalic, Neuro - AAO x 3. ARTURO. EOMI. Tone/Power normal all 4 extremities. Altered sensation RUE/RLE Heart - S1, S2, RRR Lungs - clear to auscultation Abdomen - Soft, non-tender. Bowel Sounds normal. Extremities - no edema, no calf tenderness Current Medications Generic Name Dose Route Start Last Admin Trade Name Freq PRN Reason Stop Dose Admin Acetaminophen 650 mg 07/16/19 07:58 Tylenol - PO Q4H PRN HEADACHE Atorvastatin Calcium 20 mg 07/16/19 10:12 Lipitor - PO HS KOFI Clopidogrel Bisulfate 75 mg 07/16/19 10:00 07/16/19 10:32 Plavix - PO 75 mg DAILY KOFI Administration Enoxaparin Sodium 40 mg 07/15/19 10:00 07/16/19 10:32 Lovenox - SQ 40 mg DAILY KOFI Administration Nortriptyline HCl 25 mg 07/16/19 10:00 Pamelor - PO BID KOFI Pantoprazole Sodium 20 mg 07/16/19 10:00 07/16/19 10:32 Protonix - PO 20 mg BID KOFI Administration ASSESSMENT/PLAN: 39 year old female with history of Migraine Headaches, presents with rapid onset Headache, with associated RUE/RLE weakness/numbness/tingling. 1. Complicated Migraine CT Brain negative for acute findings MRI Brain negative Cartotid Duplex - no hemodynamicaly significant stenosis Echo and MRI C Spine pending. Evaluated by Neuro - failed trial of depakote/decadron. Will attempt dose of toradol, benadryl and compazine. Neuro recommends Nortriptylline on discharge. Out-patient follow up with Dr. Etienne. 2. HLD - LDL 169, TG 176 - started on Lipitor. LFT check in 3 weeks. PCP follow up. DVT Px - Lovenox SQ If improvement in symptoms and if remaining imaging is negative, patient can be discharged with Neuro follow up.
--- NOTE | 2019-07-16 11:25 | CONSULT ---
Admitting History and Physical - Primary Care Physician PCP: Alessandro Thomason - Admission History of Present Illness: Per EMR- 39 Romanian-speaking female w/ pmhx of HLD presents to the ED for complaints of R sided numbness/tingling. #R side paresthesia; etiology unclear, possible vasculitis, r/o stroke -Head CT/Brain MRI neg Selected Entries 07/15/19 07/15/19 07/15/19 06:41 14:00 15:49 Supper Temperature 98.6 F 98.1 F 98.1 F 07/15/19 07/15/19 07/15/19 15:59 18:00 22:00 Supper 75% Temperature 98.1 F 98.6 F 98.1 F 07/16/19 07/16/19 07/16/19 02:00 06:00 08:29 Supper Temperature 97.4 F L 97.9 F 98.0 F Laboratory Tests 07/14/19 21:25 WBC 12.4 H Neurology suspects Complex Migraine Pt tearful, reporting head, face, right side alternates becoming cold/hot/ painful/numb/tingly. Ativan has reduced the pain but still with numbness. w/u in progress. History Source: Patient, Family Member Limitations to Obtaining History: No Limitations - Past Medical History ...LMP: 07/07/16 - Past Surgical History Past Surgical History: Yes: - Smoking History Smoking history: Never smoked Have you smoked in the past 12 months: No - Alcohol/Substance Use Hx Alcohol Use: No - Social History History of Recent Travel: No History - Admission Reason For Visit: CEREBROVASCULAR ACCIDENT - Diagnostics X-ray: Report Reviewed CT Scan: Report Reviewed MRI: Report Reviewed - General Mental Status: Alert and Oriented, Awake and Alert, Able to Follow Commands Attention: Intact Ability to Follow Directions: Excellent Head/Neck Control: WFL - Hearing Hearing: Normal Speech Evaluation - Communication Primary Language: UKRAINIAN Communication: Yes: Within Normal Limits Oral Expression Ability: Yes: No Impairment - Speech Production Able to Make Needs Known: Yes: WNL Intelligibility: Yes: WNL - Speech Characteristics Voice Loudness: Normal Voice Pitch: Yes: Normal Voice Phonatory-based Quality: Yes: Normal Speech Pattern: Normal Speech Clarity: < 100% Nasal Resonance: Normal Articulation: Yes: Precise Rate of Speech: Intact - Language/Auditory Comprehension Follows: Yes: Complex Commands - Language/Verbal Expression Able to Respond to Simple Queries: Yes: WNL Able to Communicate Wants and Needs: Yes: WNL Functional Communication Status: Yes: WNL - 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: WNL Short Term Memory: Yes: WNL - Swallow Evaluation/Bedside Assessment Current Nutritional Intake: Regular, Thin Liquids Oral Secretions: Yes: WFL Dentition: Yes: Adequate Facial Symmetry at Rest: Symmetrical Facial Symmetry on Retraction: Symmetrical Facial Movement: Controlled Sensation: Reduced Right Against Resistance Opening: Normal Against Resistance Closing: Normal Pucker Lips: Normal Smile: Normal Lingual Movement: Normal, Symmetric Lingual Speed of Movement: Normal Lingual Movement Strgth Against Opposition: Normal Lingual Movement Characteristics: Normal Velopharyngeal Movement: Normal Laryngeal Elevation: WFL Laryngeal Movement: Able to Palpate Rate of Intake: WFL Bolus Size: WFL Labial Seal: WFL Chewing: WFL Oral Prep Time: WFL A-P Transit: WFL Pocketing: None Timing of Swallow: WFL Coughing/Throat Clear: No Change in Voice: No Recommendations - Speech Evaluation, Impression/Plan Impression: Speech,language,swallowing, cognition intact. w/u regarding right sided sensory issues. - Dysphagia Impressions/Plan Swallowing Skills: WFL Dysphagia Impressions: No Impairment *Silent aspiration: cannot be R/O at bedside - Recommendations Diet Consistency: Regular Medication Administration: Whole with water Liquids: Thin Liquids
--- NOTE | 2019-07-16 12:24 | ECHO ---
Name: MIRLANDE COPE Exam:Adult Echocardiogram Study Date: 07/16/2019 08:44 AM Age: 39 yrs Height: 64 in Weight: 145 lb BSA: 1.7 m2 MMode/2D Measurements & Calculations IVSd: 0.66 cm Ao root diam: 2.6 cm LVIDd: 3.7 cm LA dimension: 2.1 cm LVIDs: 2.1 cm LVPWd: 0.65 cm LVPWs: 0.79 cm EDV(Teich): 57.6 ml ESV(Teich): 13.9 ml RV S Jimmy: 10.6 cm/sec Doppler Measurements & Calculations MV E max jimmy: 58.7 cm/sec Ao V2 max: 118.0 cm/sec MV A max jimmy: 85.4 cm/sec Ao max P.6 mmHg MV E/A: 0.69 MV dec time: 0.08 sec LV V1 max P.1 mmHg PA V2 max: 109.3 cm/sec LV V1 max: 100.9 cm/sec PA max P.8 mmHg Med Peak E' Jimmy: 7.2 cm/sec Med E/e': 8.2 Lat Peak E' Jimmy: 11.6 cm/sec Lat E/e': 5.0 Procedure A complete two-dimensional transthoracic echocardiogram was performed (2D, M-mode, Doppler and color flow Doppler). Technically limited study. Left Ventricle The left ventricle is normal in size. Left ventricular systolic function is normal. Ejection Fraction = 65- 70%. No regional wall motion abnormalities noted. Right Ventricle The right ventricle is normal size. The right ventricular systolic function is normal. RV systolic TD I is 11 cm/s. Atria The left atrial size is normal. Right atrial size is normal. Mitral Valve The mitral valve is normal in structure and function. There is mild mitral regurgitation. Tricuspid Valve The tricuspid valve is normal in structure and function. No tricuspid regurgitation. Aortic Valve The aortic valve is normal in structure and function. No aortic regurgitation is present. Pulmonic Valve The pulmonic valve is not well visualized. Great Vessels The aortic root is normal size. Pericardium/Pleura There is no pericardial effusion. Interpretation Summary Technically limited study The left ventricle is normal in size. Left ventricular systolic function is normal. No regional wall motion abnormalities noted. Ejection Fraction = 65-70%. The right ventricular systolic function is normal. The left atrial size is normal. Right atrial size is normal. There is mild mitral regurgitation. There is no pericardial effusion. Freddie Mar MD 07/16/2019 12:24 PM
--- NOTE | 2019-07-16 16:29 | PN ---
Physical Exam: SUBJECTIVE: Patient seen and examined in the morning. No acute events on telemetry monitoring or overnight. Patient complains of parethesias on the right side of her body. No complaints of chest pain, headache, abdominal pain, nausea, vomiting, diarrhea. OBJECTIVE: Vital Signs Period Temp Pulse Resp BP Sys/Lee Pulse Ox Last 24 Hr 97.4 F-98.6 F 80-100 16-20 102-125/53-81 99-99 GENERAL: AAOx3. NAD. Patient is in mild distress. s. LUNGS: CTA B/L. No wheezes, rhonchi noted. Symmetric chest rise. HEART: RRR. Normal S1, S2. No murmurs noted. ABDOMEN: Soft, NT/ND. Normoactive bowel sounds in all 4 Qs. MUSCULOSKELETAL: Normal range of motion at all joints. No bony deformities or tenderness. No CVA tenderness. NEUROLOGICAL: Normal speech. Facial muscles intact. Decreased sensation in R side of face and u/l extremities. 5/5 muscle strength in u/l b/l extremities. SKIN: Warm, dry, normal turgor, no rashes or lesions noted, normal capillary refill. Laboratory Results - last 24 hr 07/15/19 03:35 CRISTAL Screen Negative Active Medications Generic Name Dose Route Start Last Admin Trade Name Freq PRN Reason Stop Dose Admin Acetaminophen 650 mg 07/16/19 07:58 Tylenol - PO Q4H PRN HEADACHE Atorvastatin Calcium 20 mg 07/16/19 10:12 Lipitor - PO HS KOFI Clopidogrel Bisulfate 75 mg 07/16/19 10:00 07/16/19 10:32 Plavix - PO 75 mg DAILY KOFI Administration Enoxaparin Sodium 40 mg 07/15/19 10:00 07/16/19 10:32 Lovenox - SQ 40 mg DAILY KOFI Administration Nortriptyline HCl 25 mg 07/16/19 10:00 07/16/19 11:43 Pamelor - PO 25 mg BID KOFI Administration Pantoprazole Sodium 20 mg 07/16/19 10:00 07/16/19 10:32 Protonix - PO 20 mg BID KOFI Administration ASSESSMENT/PLAN: 39 F with PMH of migraine headaches presents with Right sided parethesia in the face, arms and legs, likeyl a complex migraine. 1) Complex Migraine CT brain and MRI brain negative. Carotid duplex negative MRI C-Spine pending Echo-negative Neuro consulted, appreciate recs Started on Nortriptyline 25 mg PO BID -Dose of toradol, benadryl and compazine for further episodes in hospital. 2)HLD -LFT check in 3 weeks -Atorvastatin 20 mg PO HS DVT: Lovenox 40 mg SQ Daily F: oral hydration E: electrolytes normal N: cholesterol controlled diet Visit type - Emergency Visit Emergency Visit: Yes ED Registration Date: 07/14/19 Care time: The patient presented to the Emergency Department on the above date and was hospitalized for further evaluation of their emergent condition. - New Patient This patient is new to me today: Yes Date on this admission: 07/16/19 - Critical Care Critical Care patient: No ATTENDING PHYSICIAN STATEMENT I saw and evaluated the patient. I reviewed the resident's note and discussed the case with the resident. I agree with the resident's findings and plan as documented. SUBJECTIVE: OBJECTIVE: ASSESSMENT AND PLAN:
[2019-07-16 18:09] VITALS: BP 127/73; PULSE 111; TEMP 98.4
--- NOTE | 2019-07-17 15:50 | DS ---
Physical Exam: SUBJECTIVE: Patient seen and examined in the morning. No acute events on telemetry monitoring or overnight. Patient complains of parethesias on the right side of her body. No complaints of chest pain, headache, abdominal pain, nausea, vomiting, diarrhea. OBJECTIVE: Vital Signs Period Temp Pulse Resp BP Sys/Lee Pulse Ox Last 24 Hr 98.4 F 111 18 127/73 PHYSICAL EXAM GENERAL: AAOx3. NAD. Patient is in mild distress. s. LUNGS: CTA B/L. No wheezes, rhonchi noted. Symmetric chest rise. HEART: RRR. Normal S1, S2. No murmurs noted. ABDOMEN: Soft, NT/ND. Normoactive bowel sounds in all 4 Qs. MUSCULOSKELETAL: Normal range of motion at all joints. No bony deformities or tenderness. No CVA tenderness. NEUROLOGICAL: Normal speech. Facial muscles intact. Decreased sensation in R side of face and u/l extremities. 5/5 muscle strength in u/l b/l extremities. SKIN: Warm, dry, normal turgor, no rashes or lesions noted, normal capillary refill. LABS Laboratory Results - last 24 hr 07/15/19 03:35 CRISTAL Screen Negative HOSPITAL COURSE: Date of Admission:07/14/19 Date of Discharge: 07/17/19 39 F with PMH of migraine headaches presents with Right sided parethesia in the face, arms and legs, likely a complex migraine. Patient was initially worked up for a stroke. Head CT and Brain MRI was negative. EKG did not show any ischemic changes. Patient was seen by neurology and initially started on depakote and decadron, however patient did not feel any symptomatic relief. Neurology changed treatment meds to 25 mg PO BID and gave her dose of toradol, benadryl and compazine to which she found symptomatic relief. C-Spine MRI was also negative and patient was stable for discharge with follow up by Dr. Etienne her neurologist. Patient will continue Nortriptyline 25 mg PO BID and Atorvastatin 20 mg PO HS. Imaging done this admission: Head CT: Normal CT scan of the head with no evidence of acute intracranial pathology. Brain MRI: No evidence acute infarct. No evidence of intracerebral hemorrhage, subdural fluid collection or hydrocephalus. Mucosal thickening right frontal and right ethmoid and right maxillary sinuses sequela of sinusitis. Carotid Dopplerr: No evidence of hemodynamically significant stenoses. CSPINE MRI: No evidence of cervical cord enlargement or suspicious demyelinating plaques of the cervical cord. Straightening cervical lordosis. No evidence of midline or foraminal disc herniation. No evidence cord compression. Minutes to complete discharge: 30 Discharge Summary Problems reviewed: Yes Reason For Visit: CEREBROVASCULAR ACCIDENT Condition: Stable - Instructions Diet, Activity, Other Instructions: You were admitted to the hospital because you were having numbness and tingling of the right side of your body. While you were here we scanned your brain and your neck and saw that they were normal. We did a scan of your heart and it is functioning normally. Your neurologist, Dr. Etienne saw you and he believes you are having complex migraines. For the complex migraine you will be taking new medication. Please take: Nortryptiline 25 mg by mouth, daily twice a day. Atorvastatin 20 mg, by mouth, before bed nightly. You need to follow up with your primary care physician Dr. Garcia within 3 weeks in order to get blood work done (Liver Function Tests). You need to follow up with your neurologist Dr. Etienne so he can continue managing your complex migraines. Return to the emergency department if you have chest pain, shortness of breath, muscle aches, or worsening headaches or of your symptoms. Referrals: Speedy Garcia M.D [Other] - 3 Weeks Sonny Etienne MD [Staff Physician] - 1 Week Disposition: HOME - Home Medications Comprehensive Discharge Medication List: Ambulatory Orders Atorvastatin Ca [Lipitor] 20 mg PO HS #30 tablet 07/16/19 Nortriptyline HCl [Pamelor -] 25 mg PO BID #60 capsule 07/16/19 This patient is new to me today: No Emergency Visit: Yes ED Registration Date: 07/14/19 Care time: The patient presented to the Emergency Department on the above date and was hospitalized for further evaluation of their emergent condition. Critical Care patient: No - Discharge Referral Referred to [facility] No ATTENDING PHYSICIAN STATEMENT I saw and evaluated the patient. I reviewed the resident's note and discussed the case with the resident. I agree with the resident's findings and plan as documented. SUBJECTIVE: OBJECTIVE: ASSESSMENT AND PLAN:
[2019-07-17 17:09] LABS: ATYPICAL pANCA <1:20 titer (Neg:<1:20); C-ANCA <1:20 titer (Neg:<1:20)
== END 2019-07-16 20:56 | disposition home or self-care (01) ==
LOC: JER 15:22 → JERBED 22:45 → J4S 07-15 15:40
PROVIDERS: ADMIT Internal Medicine
PROC: 3E0333Z Introduction of Anti-inflammatory into Peripheral Vein, Percutaneous Approach (ICD-10-PCS; principal; 2019-07-14)
PROC: 3E033GC Introduction of Other Therapeutic Substance into Peripheral Vein, Percutaneous Approach (ICD-10-PCS; 2019-07-14)
PROC: 3E0337Z Introduction of Electrolytic and Water Balance Substance into Peripheral Vein, Percutaneous Approach (ICD-10-PCS; 2019-07-14)
DX: G43.101 Migraine with aura, not intractable, with status migrainosus (principal); D72.829 Elevated white blood cell count, unspecified; E78.5 Hyperlipidemia, unspecified; R20.0 Anesthesia of skin; Z88.0 Allergy status to penicillin; Z88.6 Allergy status to analgesic agent
CPT/HCPCS: 36415; 70450-TC; 70551-TC; 71045-TC-FY; 72141-TC; 80053; 80061; 80307; 81003; 82550; 82962; 83036; 83520; 83721; 84484; 84703; 85025; 85610; 85651; 85730; 86038; 86140; 86256; 86850; 86900; 86901; 93005; 93010; 93306-TC; 93880-TC; 96372; 96374; 96375; 97116-GP; 97161-GP; 99285-25; G0378; J7030

== ENCOUNTER 2019-07-17 22:29 | Emergency (ER) | payer OTHER ==
[2019-07-17 22:52] VITALS: TEMP 98.1; BMI 28.3
--- NOTE | 2019-07-18 00:44 | PDOC ---
Attending Attestation - Resident Resident Name: Fran Preciado - ED Attending Attestation I have performed the following: I have examined & evaluated the patient, The case was reviewed & discussed with the resident, I agree w/resident's findings & plan - HPI HPI: 07/18/19 01:35 see resident hpi - Physicial Exam PE: 07/18/19 01:35 agree with resident exam - Medical Decision Making 07/18/19 39-year-old female with mild stomach upset after vomiting. Patient took an amitriptyline which upset her stomach. She is status post recent extensive work-up for headache and diagnosed with complex migraines She does not have complaints of headache at this time Patient states she is ready to go home after Zofran 4 mg ODT DC with outpatient follow-up as previously described
[2019-07-18] MEDS ORDERED: ONDANSETRON 4 MG/2 ML VIAL IVPUSH ONE (00:50)
[2019-07-18] MEDS ORDERED: SODIUM CHLORIDE 0.9% 1000 ML INFUS.BAG IV ONE (00:50)
[2019-07-18] MEDS ORDERED: FAMOTIDINE 20 MG/50 ML IVPB 20 MG/50 ML MG IVPB ONE ×2 (00:50→01:10)
[2019-07-18] MEDS ORDERED: ONDANSETRON 4 MG/2 ML VIAL ONE (01:10)
[2019-07-18] MEDS ORDERED: ONDANSETRON *ODT* 4 MG TABLET SL ONE (01:16)
[2019-07-18] MEDS ORDERED: ONDANSETRON *ODT* 4 MG TABLET ONE (01:25)
--- NOTE | 2019-07-18 01:37 | PDOC ---
History of Present Illness - General Chief Complaint: Migraine Headache Stated Complaint: VOMITING Time Seen by Provider: 07/18/19 00:42 History Source: Patient Exam Limitations: No Limitations - History of Present Illness Initial Comments: 07/18/19 01:59 39F with a PMH of recent dx of migraines who presents to the ER for nausea after taking her nortriptyline. Pt states she became nauseous and vomited "a few times" without hematemesis or bilious vomiting. Admits to "some" headache which is not as severe as the migraine she was admitted for. Past History - Past Medical History Allergies/Adverse Reactions: Allergies Allergy/AdvReac Type Severity Reaction Status Date / Time amoxicillin AdvReac Severe Verified 07/14/19 15:37 oxycodone [From OxyContin] AdvReac Severe Verified 07/14/19 15:37 aspirin AdvReac Intermediate Verified 07/14/19 15:37 Home Medications: Ambulatory Orders Atorvastatin Ca [Lipitor] 20 mg PO HS #30 tablet 07/16/19 Nortriptyline HCl [Pamelor -] 25 mg PO BID #60 capsule 07/16/19 COPD: No CHF: No Hypercholesterolemia: Yes Other medical history: Migraines - Surgical History Cholecystectomy: Yes (2008) - Reproductive History (#): 3 Para: 2 Cervical CA: No Dysfunctional Uterine Bleeding: No Ectopic : No Endometrial CA: No Polycystic Ovaries: No Therapeutic (s) & number: No Tubal Ligation: No Spontaneous : 0 - Immunization History Immunization Up to Date: Yes - Psycho Social/Smoking Cessation Hx Smoking History: Never smoked Have you smoked in the past 12 months: No Hx Alcohol Use: No Drug/Substance Use Hx: No Substance Use Type: None Hx Substance Use Treatment: No Review of Systems - Review of Systems Able to Perform ROS?: Yes Is the patient limited Portuguese proficient: No Constitutional: No: Chills, Fever HEENTM: No: Eye Pain, Blurred Vision Respiratory: No: Shortness of Breath Cardiac (ROS): No: Chest Pain ABD/GI: Yes: Nausea, Vomiting. No: Abdominal Distended, Constipated : No: Burning, Dysuria, Discharge Neurological: Yes: Headache ("mild"). No: Numbness, Tingling, Weakness *Physical Exam - Vital Signs Last Vital Signs Temp Pulse Resp BP Pulse Ox 98.1 F 129 H 20 114/82 99 07/17/19 22:48 07/17/19 22:48 07/17/19 22:48 07/17/19 22:48 07/17/19 22:48 - Physical Exam General Appearance: Yes: Nourished, Appropriately Dressed. No: Apparent Distress HEENT: positive: Normal Voice, Hearing Grossly Normal Respiratory/Chest: positive: Lungs Clear, Normal Breath Sounds. negative: Chest Tender Cardiovascular: positive: Regular Rhythm, Regular Rate. negative: Diastolic Murmur, Systolic Murmur Gastrointestinal/Abdominal: positive: Flat, Soft. negative: Tender Musculoskeletal: negative: CVA Tenderness, CVA Tenderness (R), CVA Tenderness (L ) Extremity: positive: Normal Inspection, Normal Range of Motion Integumentary: positive: Normal Color, Dry, Warm Neurologic: positive: special education educational assistant II-XII NML intact, Fully Oriented, Alert, Normal Mood/ Affect, Normal Response, Motor Strength 5/5. negative: Abnormal Cranial NS ED Treatment Course - Medications Given in the ED: ED Medications Discontinued Medications Generic Name Dose Route Start Last Admin Trade Name Freq PRN Reason Stop Dose Admin Famotidine/Sodium Chloride 20 mg in 50 mls @ 100 mls/hr 07/18/19 00:50 01:27 Pepcid 20 Mg Premixed Ivpb - IVPB 07/18/19 01:19 Not Given ONCE ONE Ondansetron HCl 4 mg 07/18/19 00:50 07/18/19 01:27 Zofran Injection IVPUSH 07/18/19 00:51 Not Given ONCE ONE Ondansetron HCl 4 mg 07/18/19 01:16 07/18/19 01:26 Zofran Odt - SL 07/18/19 01:17 4 mg ONCE ONE Administration Sodium Chloride 1,000 ml 07/18/19 00:50 07/18/19 01:27 Normal Saline - IV 07/18/19 00:51 Not Given ONCE ONE Medical Decision Making - Medical Decision Making 07/18/19 02:03 39F with a PMH of recent migraine diagnosis, worked up extensively in our hospital, discharged on 07/17 and took her nortriptyline and felt nauseous and vomited. Given zofran ODT with resolution of symptoms. Will d/c with PCP and neuro f/u. Discharge - Discharge Information Problems reviewed: Yes Clinical Impression/Diagnosis: Nausea Disposition: HOME - Admission No - Follow up/Referral Referrals: Speedy Banks PA [Primary Care Provider] - - Patient Discharge Instructions Patient Printed Discharge Instructions: DI for Nausea -- Adult Additional Instructions: Please follow up with your neurologist this week. Take your medications as prescribed. Your ER visit is not complete until your follow up with your primary care physician. Please follow up with your primary care physician in 1-2 days. Please return to the ER if you have any signs or symptoms of chest pain, shortness of breath, uncontrollable fever, chills, nausea, vomiting, numbness, tingling, or weakness in any part of your body, changes in vision, or slurred speech. Please return to the ER if symptoms persist, worsen, or new symptoms arise. - Post Discharge Activity
[2019-07-18 01:57] VITALS: BP 109/77; PULSE 96
== END 2019-07-18 01:54 | disposition home or self-care (01) ==
LOC: JER 22:29
DX: R11.2 Nausea with vomiting, unspecified (principal); G43.109 Migraine with aura, not intractable, without status migrainosus; E78.00 Pure hypercholesterolemia, unspecified; Z88.0 Allergy status to penicillin; Z88.6 Allergy status to analgesic agent; Z88.5 Allergy status to narcotic agent
CPT/HCPCS: 99282-25; Q0162

== ENCOUNTER 2019-07-21 15:26 | Emergency (ER) | payer OTHER ==
[2019-07-21 15:35] VITALS: BMI 24.9
[2019-07-21] MEDS ORDERED: METOCLOPRAMIDE HCL INJECTION 10 MG/2 ML VIAL IVPUSH ONE (16:13)
[2019-07-21] MEDS ORDERED: ONDANSETRON 4 MG/2 ML VIAL IVPUSH ONE (16:13)
[2019-07-21] MEDS ORDERED: KETOROLAC TROMETHAMINE 30 MG/1 ML VIAL IVPUSH ONE (16:13)
[2019-07-21] MEDS ORDERED: SODIUM CHLORIDE 0.9% 500 ML INFUS.BAG IV ONE ×2 (16:14→19:16)
--- NOTE | 2019-07-21 16:15 | PDOC ---
History of Present Illness - General Chief Complaint: Vomiting Blood Stated Complaint: VOMITING - History of Present Illness Initial Comments: Vika Maurer is a 39yo woman with a PMH of migraine, recently admitted with complex migraine from 07/14-07/17, who presents to the ED with persistent symptoms. She reports that she felt well when she was discharged from the hospital, but her symptoms returned within a few hours. She was seen back here in the ED for continued symptoms in the evening and discharged again. Ms Maurer was then seen at a hospital in the [place] on . She reports that at that time, she was hearing voices and was told to stop the new nortriptylene. She was again treated with medications and discharged home. Ms Maurer reports that her symptoms have continued without any significant improvement for the past several days. She additionally has had frequent vomiting today staring at 11:00am. Initially, her emesis looked like water, but the last few times have been blood-tinged. She denies any fever, new neurological symptoms, focal weakness, difficulty walking, changes in her vision , or other recent symptoms. Past History - Past Medical History Allergies/Adverse Reactions: Allergies Allergy/AdvReac Type Severity Reaction Status Date / Time amoxicillin AdvReac Severe Verified 07/21/19 15:36 oxycodone [From OxyContin] AdvReac Severe Verified 07/21/19 15:36 aspirin AdvReac Intermediate Verified 07/21/19 15:36 Home Medications: Ambulatory Orders Atorvastatin Ca [Lipitor] 20 mg PO HS #30 tablet 07/16/19 Nortriptyline HCl [Pamelor -] 25 mg PO BID #60 capsule 07/16/19 COPD: No CHF: No Hypercholesterolemia: Yes - Surgical History Cholecystectomy: Yes (2008) - Reproductive History (#): 3 Para: 2 Cervical CA: No Dysfunctional Uterine Bleeding: No Ectopic : No Endometrial CA: No Polycystic Ovaries: No Therapeutic (s) & number: No Tubal Ligation: No Spontaneous : 0 - Immunization History Immunization Up to Date: Yes - Psycho Social/Smoking Cessation Hx Smoking History: Former smoker Have you smoked in the past 12 months: No Information on smoking cessation initiated: No Hx Alcohol Use: No Drug/Substance Use Hx: No Substance Use Type: None Hx Substance Use Treatment: No Review of Systems - Review of Systems Comments:: General: No fevers, no chills, no weight or appetite change, no malaise HEENT: No changes in vision, no changes in hearing, no congestion, no sore throat CV: No chest pain, no palpitations, no LE edema Pulm: No SOB, no cough, no wheezing GI: No nausea or vomiting, no change in bowel habits, no melena : No frequency, no urgency, no dysuria Musc: No back pain, no joint swelling, no recent injury Skin: No rash, no lesions, no erythema Endo: No excessive thirst, no heat/cold intolerance Heme: No unusual bruising or bleeding, no swollen glands Neuro: See HPI Vasc: No claudication Psych: No recent change in mood, no SI or HI *Physical Exam - Vital Signs Last Vital Signs Temp Pulse Resp BP Pulse Ox 99.8 F H 113 H 16 115/86 100 07/21/19 15:31 07/21/19 15:31 07/21/19 15:31 07/21/19 15:31 07/21/19 15:31 - Physical Exam General: Comfortable, no acute distress HEENT: Atraumatic, PERRL, EOMI, MMM, voice normal, normal neck ROM Cards: RRR, no murmur appreciated Pulm: Comfortable on room air, clear to auscultation bilaterally Abd: Soft, nontender, nondistended Ext: Atraumatic. No LE edema. ROM intact. WWP Skin: Normal color, no rashes or lesions Neuro: A&Ox3, CN grossly intact, normal speech, motor/sensory grossly intact and symmetric. No focal deficits appreciated Psych: Mood appropriate to situation ED Treatment Course - LABORATORY CBC & Chemistry Diagram: 07/21/19 17:33 07/21/19 17:33 Medical Decision Making - Medical Decision Making 07/21/19 16:14 Vika Maurer is a 39yo woman with a PMH of migraine, recently admitted with complex migraine from 07/14-07/17, who presents to the ED for the 4th time this week with persistent symptoms. She also reports frequent vomiting that has become blood-tinged throughout the day. She denies any fever, new neurological symptoms, focal weakness, difficulty walking, changes in her vision , or other recent symptoms. - Most likely continued complex migraine. However, given minimal improvement and now 4 ED visits in a week, will broaden evaluation - Borderline temperature, tachycardic. Sepsis workup ordered for evaluation - MRI brain and c-spine completed this week. Will not repeat 07/21/19 18:27 - Labs reviewed. No concerning abnormalities or changes from previous - Feeling improved - Will continue to monitor 07/21/19 18:59 - Pt now reporting recurrent headache. Pt crying in pain - IV acetaminophen ordered. - Sign out given to Dr Klein Discussed with Dr Jose Ahuja PGY2 Discharge - Discharge Information Problems reviewed: Yes Clinical Impression/Diagnosis: Headache Qualifiers: Headache type: unspecified Headache chronicity pattern: chronic headache Intractability: intractable Qualified Code(s): R51 - Headache - Follow up/Referral Referrals: Landen Linares MD [Non Staff, Medical] - - Patient Discharge Instructions - Post Discharge Activity
[2019-07-21] MEDS ORDERED: METOCLOPRAMIDE HCL INJECTION 10 MG/2 ML VIAL ONE (17:00)
[2019-07-21] MEDS ORDERED: ONDANSETRON 4 MG/2 ML VIAL ONE (17:01)
[2019-07-21] MEDS ORDERED: KETOROLAC TROMETHAMINE 30 MG/1 ML VIAL ONE (17:01)
[2019-07-21 17:54] LABS: VENOUS PC02 39.5 mmHg (38-52); VENOUS PH 7.39 (7.31-7.41); VENOUS PO2 < 49 mmHg (28-48)
[2019-07-21 17:55] LABS: BASO % 0.4 % (0-2.0); HEMATOCRIT 37.7 % (32.4-45.2); HEMOGLOBIN 12.5 GM/dL (10.7-15.3); LYMPH % 14.8 % (8-40); MCH 28.7 pg (25.7-33.7); MCHC 33.2 g/dl (32.0-36.0); MEAN CELL VOLUME 86.6 fl (80-96); MEAN PLT VOLUME 7.9 fl (7.5-11.1); MONO % 4.5 % (3.8-10.2); NEUT % 80.3 % (42.8-82.8); PLATELET COUNT 491 K/MM3 (134-434); RBC 4.36 M/mm3 (3.60-5.2); RDW 13.8 % (11.6-15.6); WHITE BLOOD COUNT 12.5 K/mm3 (4.0-10.0)
[2019-07-21 18:00] LABS: INR 1.05 (0.83-1.09); PROTHROMBIN TIME (PATIENT) 12.4 SEC (9.7-13.0)
[2019-07-21 18:02] LABS: ACTIVATED PTT 30.9 SECONDS (25.2-36.5)
[2019-07-21 18:23] LABS: ALBUMIN 3.9 g/dl (3.4-5.0); BILIRUBIN,TOTAL 0.5 mg/dL (0.2-1); BLOOD UREA NITROGEN 11.4 mg/dL (7-18); CALCIUM 8.4 mg/dL (8.5-10.1); CREATININE 0.7 mg/dL (0.55-1.3); POTASSIUM 3.9 mmol/L (3.5-5.1); TOT PROT 7.1 g/dl (6.4-8.2)
[2019-07-21] MEDS ORDERED: ACETAMINOPHEN 1000 MG/100 ML VIAL (NON FORMULARY) IVPB ONE (19:16)
[2019-07-21] MEDS ORDERED: ACETAMINOPHEN INJECTION 100 ML IVPB ONE (19:21)
--- NOTE | 2019-07-21 19:26 | PDOC ---
ED Treatment Course - LABORATORY CBC & Chemistry Diagram: 07/21/19 17:33 07/21/19 17:33 Medical Decision Making - Medical Decision Making Pt signed out to me by Dr. Ahuja, see prior note. 39 year old female with PMH migraine disorder, recently admitted for complex migraine (07/14-07/17) presented to ED for similar complaints. She also was seen at another hospital in the [place] x2 days ago for similar complaints. She also complained of nausea/vomiting beginning today around 1100, mentioning sometimes the vomit is blood tinged. She reported her migraine is associated with right sided weakness and a sensation of the right upper extremity feeling cold. Cervical spine MRI 07/16/19: Name: [facility] Phys: Marcela Bansal : 1980 Age: 39 Sex: F [facility] Acct: [id number] Loc: [address] Exam Date: 07/16/19 Status: [place] [address] Unit Number: [id number] EXAM#: TYPE/EXAM: RESULT: [id number] MRI/CERVICAL SPINE MRI W/O CONTR MRI cervical spine. Clinical history: Right-sided numbness. Coronal, sagittal and axial T1, T2-weighted images were obtained. There is no suspicious pathologic bone marrow replacement cervical vertebrae, acute compression fracture or paraspinal mass. No suspicious demyelinating plaques of the cervical cord. There is some straightening of cervical lordosis. Axial sections were obtained through the disc spaces C2-C3, C7-T1. There is no evidence of midline or foraminal disc herniation. Visualized foramina C2-C3 C7- T1 symmetric and unremarkable. Impression: No evidence of cervical cord enlargement or suspicious demyelinating plaques of the cervical cord. Straightening cervical lordosis No evidence of midline or foraminal disc herniation. No evidence cord compression. Reported By: Ronan Damon MD 07/16/19 181 Brain MRI 07/14/19: Name: [facility] Phys: Marty March : 1980 Age: 39 Sex: F [facility] Acct: [id number] Loc: [address] Exam Date: 07/14/19 Status: [place] [address] Unit Number: [id number] EXAM#: TYPE/EXAM: RESULT: [id number] MRI/BRAIN MRI W/O CONTRAST MRI of the brain noncontrast Clinical history: Rule out stroke. Rule out vasculitis. Sagittal, coronal and axial T1, T2, FLAIR and diffusion-weighted images were obtained. The midline structures unremarkable. No evidence of a Chiari malformation. On the T2 and FLAIR weighted images there is no evidence of demyelinating plaques or small vessels infarctions. No evidence of acute infarction. The diffusion weighted images unremarkable. No evidence of intracerebral hemorrhage, subdural fluid collection or hydrocephalus. Mucosal thickening right frontal and right ethmoid and right maxillary sinuses sequela of sinusitis. Impression: No evidence acute infarct. No evidence of intracerebral hemorrhage, subdural fluid collection or hydrocephalus. Mucosal thickening right frontal and right ethmoid and right maxillary sinuses sequela of sinusitis. Reported By: Ronan Damon MD [id number] Initial Vital Signs Temp Pulse Resp BP Pulse Ox 99.8 F H 113 H 16 115/86 100 07/21/19 15:31 07/21/19 15:31 07/21/19 15:31 07/21/19 15:31 07/21/19 15:31 Afebrile. Tachycardic. No tachypnea. No hypotension. No hypoxia on room air. Vital Signs Temperature 99.6 F 07/21/19 17:39 Pulse Rate 98 H 07/21/19 18:10 Respiratory Rate 19 07/21/19 18:10 Blood Pressure 107/76 07/21/19 18:10 O2 Sat by Pulse Oximetry (%) 100 07/21/19 18:10 ED Medications Discontinued Medications Generic Name Dose Route Start Last Admin Trade Name Freq PRN Reason Stop Dose Admin Diphenhydramine HCl 25 mg 07/21/19 16:13 07/21/19 17:41 Benadryl Injection - IVPB 07/21/19 16:14 25 mg ONCE ONE Administration Ketorolac Tromethamine 30 mg 07/21/19 16:13 07/21/19 17:41 Toradol Injection - IVPUSH 07/21/19 16:14 30 mg ONCE ONE Administration Metoclopramide HCl 10 mg 07/21/19 16:13 07/21/19 17:25 Reglan Injection - IVPUSH 07/21/19 16:14 10 mg ONCE ONE Administration Ondansetron HCl 4 mg 07/21/19 16:13 07/21/19 17:41 Zofran Injection IVPUSH 07/21/19 16:14 Not Given ONCE ONE Sodium Chloride 1,000 ml 07/21/19 16:14 07/21/19 17:25 Normal Saline - IV 07/21/19 16:15 1,000 ml ONCE ONE Administration Pt was given toradol, reglan, zofran, benadryl without relief of symptoms. Tylenol ordered at signout. 07/21/19 20:40 Pt reported much improvement in headache, requesting discharge, reported she has an appointment with Neuro on Tuesday. Reglan and Tylenol sent to pharmacy. Discharge - Discharge Information Problems reviewed: Yes Clinical Impression/Diagnosis: Headache Qualifiers: Headache type: unspecified Headache chronicity pattern: chronic headache Intractability: intractable Qualified Code(s): R51 - Headache Condition: Improved Disposition: HOME - Admission No - Additional Discharge Information Prescriptions: Acetaminophen [Tylenol Extra Strength] 1,000 mg PO TID PRN #18 tablet PRN Reason: Headache Metoclopramide HCl [Reglan] 10 mg PO BID PRN #6 tablet PRN Reason: Nausea - Follow up/Referral Referrals: Landen Linares MD [Non Staff, Medical] - - Patient Discharge Instructions Patient Printed Discharge Instructions: DI for Migraine Additional Instructions: Follow up with your Neurologist at your appointment on Tuesday. I have sent high-dose Tylenol to your pharmacy. Take as advised on label. I have sent an anti-nausea medication that will also treat headache called Reglan to your pharmacy. Take as advised on label. Return to the Emergency Department for increasing pain, neck stiffness, weakness , numbness, changes to gait, fever, intractable vomiting or any other new, worsening or concerning symptoms. Janette un seguimiento con manriquez neurlogo en manriquez kieran el . Envi dosis altas de Tylenol a manriquez farmacia. Tmelo dion se indica en la etiqueta. Envi un medicamento contra las nuseas que tambin tratar el dolor de celia llamado Reglan a manriquez farmacia. Tmelo dion se indica en la etiqueta. Regrese al departamento de emergencias para aumentar el dolor, la rigidez del leander, la debilidad, el entumecimiento, los cambios en la octobera, la fiebre, los vmitos intratables o cualquier otro sntoma nuevo, que empeore o se relacione. Print Language: MACEDONIAN - Post Discharge Activity Work/Back to School Note: Back to Work
--- NOTE | 2019-07-21 20:08 | PDOC ---
Documentation entered by Gillian Tamez SCRIBE, acting as scribe for Farrukh Garcia MD. Farrukh Garcia MD: This documentation has been prepared by the Dashawn bahena Xhesika, SCRIBE, under my direction and personally reviewed by me in its entirety. I confirm that the documentation accurately reflects all work, treatment, procedures, and medical decision making performed by me. Attending Attestation - Resident Resident Name: Eliana Ahuja - ED Attending Attestation I have performed the following: I have examined & evaluated the patient, The case was reviewed & discussed with the resident, I agree w/resident's findings & plan, Exceptions are as noted - HPI HPI: 07/21/19 18:16 The patient is a 39 year old female with a significant PMH of migraine (for over a year) recently admitted here at [facility] with complex migraine (had stroke workup and CT scans, which were unremarkable) who presents to the emergency department for recurrent R sided headache associated with R sided numbness/cold sensations since this morning. Symptoms are identical to the symptoms she had when she was admitted for stroke w/u. She tried to take her sumitriptan today for the migraine but pt threw it up. Pt's reports innumerable episodes of NBNB emesis, but the last episode was streaked with blood prompting him to bring her back to the ED. Pt denies fevers, chills, dizziness, stiff neck, rashes. Denies CP, SOB, abd pain, diarrhea, constipation. Denies urinary sxs, LE edema. Allergies: amoxicillin, oxycodone, aspirin PCP: Landen Rodrigues Neurologist: Dr. Hendrickson - Physicial Exam PE: 07/21/19 18:18 GENERAL: Awake, alert, and fully oriented, in no acute distress HEAD: No signs of trauma EYES: PERRLA, EOMI, sclera anicteric, conjunctiva clear ENT: Auricles normal inspection, hearing grossly normal, nares patent, oropharynx clear without exudates. Moist mucosa NECK: Normal ROM, supple, no lymphadenopathy, JVD, or masses. Negative kernigs and brudzinski's LUNGS: Breath sounds equal, clear to auscultation bilaterally. No wheezes, and no crackles HEART: Regular rate and rhythm, normal S1 and S2, no murmurs, rubs or gallops ABDOMEN: Soft, nontender, normoactive bowel sounds. No guarding, no rebound. No masses EXTREMITIES: Normal range of motion, no edema. No clubbing or cyanosis. No cords , erythema, or tenderness BACK: No midline spinal tenderness in cervical/thoracic/lumbar region NEUROLOGICAL: Normal speech, cranial nerves intact, negative pronator drift, 5/ 5 strength in all 4 extremities, normal sensation to light touch in all 4 extremities, normal cerebellar exam, normal gait, normal reflexes and tone SKIN: Warm, Dry, normal turgor, no rashes or lesions noted. - Medical Decision Making 07/21/19 18:04 39yo F hx complex migraines prsents to the ED with recurrent migraine a/w NBNB emesis and PO intolerance, R sided weakness/cool sensation, unable to take migraine meds Pt tachycardic on arrival to 113, rectally afebrile. Possibly dehydrated 2/2 vomiting all day. Neuro exam intact with no deficits Neck is supple, pt with no evidence of meningismus on exam Suspect status migrainosis At this time, pt denies headache post benadryl, reglan, IVF, toradol Will reassess 07/21/19 19:07 Pt reporting that headache is back now that IV medications are completed Will trial IV tylenol, more fluids and reassess Neuro exam continues to be benign Case signed out to overnight team for reassessment/dispo
[2019-07-21 21:15] VITALS: BP 107/74; PULSE 101; TEMP 98.1
--- NOTE | 2019-07-23 10:45 | EKG ---
Test Reason : Blood Pressure : / mmHG Vent. Rate : 102 BPM Atrial Rate : 102 BPM P-R Int : 132 ms QRS Dur : 066 ms QT Int : 350 ms P-R-T Axes : 056 054 044 degrees QTc Int : 456 ms SINUS TACHYCARDIA OTHERWISE NORMAL ECG WHEN COMPARED WITH ECG OF 14-JUL-2019 18:27, NO SIGNIFICANT CHANGE WAS FOUND Confirmed by MELLO ISRAEL MD ([id number]) on 07/23/2019 10:45:05 AM Referred By: Confirmed By:MELLO ISRAEL MD
== END 2019-07-21 21:14 | disposition home or self-care (01) ==
LOC: JER 15:26
PROC: 3E033GC Introduction of Other Therapeutic Substance into Peripheral Vein, Percutaneous Approach (ICD-10-PCS; principal; 2019-07-21)
PROC: 3E033GC Introduction of Other Therapeutic Substance into Peripheral Vein, Percutaneous Approach (ICD-10-PCS; 2019-07-21)
PROC: 3E033NZ Introduction of Analgesics, Hypnotics, Sedatives into Peripheral Vein, Percutaneous Approach (ICD-10-PCS; 2019-07-21)
PROC: 3E0333Z Introduction of Anti-inflammatory into Peripheral Vein, Percutaneous Approach (ICD-10-PCS; 2019-07-21)
DX: G43.809 Other migraine, not intractable, without status migrainosus (principal); E78.00 Pure hypercholesterolemia, unspecified; Z88.0 Allergy status to penicillin; Z88.5 Allergy status to narcotic agent; Z88.6 Allergy status to analgesic agent; Z90.49 Acquired absence of other specified parts of digestive tract
CPT/HCPCS: 36415; 71045-TC-FY; 80053; 82803; 83605; 84484; 85025; 85610; 85730; 87040; 93005; 93010; 96374; 96375; 99285-25; J0131

== ENCOUNTER 2020-08-29 23:59 | Inpatient (IN) | payer OTHER ==
[2020-08-30 00:22] VITALS: BMI 25.9
[2020-08-30 01:08] LABS: BASO % 0.6 % (0-2.0); HEMATOCRIT 38.6 % (32.4-45.2); HEMOGLOBIN 12.6 GM/dL (10.7-15.3); LYMPH % 27.9 % (8-40); MCH 29.2 pg (25.7-33.7); MCHC 32.7 g/dl (32.0-36.0); MEAN CELL VOLUME 89.3 fl (80-96); MEAN PLT VOLUME 8.4 fl (7.5-11.1); MONO % 8.2 % (3.8-10.2); NEUT % 62.3 % (42.8-82.8); PLATELET COUNT 306 K/MM3 (134-434); RBC 4.32 M/mm3 (3.60-5.2); RDW 13.9 % (11.6-15.6); WHITE BLOOD COUNT 12.6 K/mm3 (4.0-10.0)
[2020-08-30 01:21] LABS: ALBUMIN 3.5 g/dl (3.4-5.0); BLOOD UREA NITROGEN 11.8 mg/dL (7-18); CALCIUM 8.2 mg/dL (8.5-10.1)
[2020-08-30 01:25] LABS: CREATININE 0.6 mg/dL (0.55-1.3)
[2020-08-30 01:26] LABS: BILIRUBIN,TOTAL 0.3 mg/dL (0.2-1); TOT PROT 6.2 g/dl (6.4-8.2)
[2020-08-30 02:09] LABS: INR 0.95 (0.83-1.09); PROTHROMBIN TIME (PATIENT) 11.7 SEC (9.7-13.0)
[2020-08-30] MEDS ORDERED: METHYLERGONOVINE MALEATE 0.2 MG/1 ML AMP IM ONE (02:16)
[2020-08-30] MEDS ORDERED: ELECTROLYTE-148 SOLN 1,000 ML IV SCH (02:30)
[2020-08-30] MEDS ORDERED: METHYLERGONOVINE MALEATE 0.2 MG/1 ML AMP IM PRN (03:02)
[2020-08-30] MEDS: OXYTOCIN 20 UNITS in 0.9% NS 20 UNIT/1,000 ML INFUS.BAG IV SCH ×2 (04:08→13:00)
[2020-08-30 06:37] LABS: BASO % 0.5 % (0-2.0); EOS % 1.2 % (0-4.5); HEMATOCRIT 39.8 % (32.4-45.2); HEMOGLOBIN 13.8 GM/dL (10.7-15.3); LYMPH % 25.3 % (8-40); MCH 30.1 pg (25.7-33.7); MCHC 34.6 g/dl (32.0-36.0); MEAN PLT VOLUME 8.4 fl (7.5-11.1); MONO % 7.5 % (3.8-10.2); NEUT % 65.5 % (42.8-82.8); PLATELET COUNT 392 K/MM3 (134-434); RBC 4.58 M/mm3 (3.60-5.2); WHITE BLOOD COUNT 11.4 K/mm3 (4.0-10.0)
[2020-08-30] MEDS: ACETAMINOPHEN 325 MG TABLET (FP) PO PRN ×3 (11:15→20:30)
[2020-08-30] MEDS ORDERED: ACETAMINOPHEN 325 MG TABLET (FP) ONE ×2 (11:29→15:16)
[2020-08-30] MEDS ORDERED: OXYTOCIN 20 UNITS in 0.9% NS 20 UNIT/1,000 ML INFUS.BAG IV SCH (15:15)
[2020-08-30] MEDS ORDERED: IBUPROFEN 400 MG TABLET (FP) PO ONE ×2 (18:30→18:33)
[2020-08-30] MEDS: ACETAMINOPHEN/CAFFEINE/BUTALBITAL 1 TAB PO PRN (21:44)
[2020-08-31] MEDS: ACETAMINOPHEN/CAFFEINE/BUTALBITAL 1 TAB PO PRN ×2 (00:46→11:10)
[2020-08-31] MEDS: OXYTOCIN 20 UNITS in 0.9% NS 20 UNIT/1,000 ML INFUS.BAG IV SCH (06:43)
[2020-08-31 09:40] VITALS: BP 97/67; PULSE 95; TEMP 98.2
== END 2020-08-31 11:50 | disposition home or self-care (01) | DRG 564 ==
LOC: JER 23:59 → JERBED 08-30 02:18 → J3W 08-30 10:47
PROVIDERS: ADMIT Obstetrics & Gynecology; ATTEND Obstetrics & Gynecology
DX: O03.9 Complete or unspecified spontaneous abortion without complication (principal); R51.9 Headache, unspecified; N93.9 Abnormal uterine and vaginal bleeding, unspecified
CPT/HCPCS: 36415; 36430; 76801-TC; 76830-TC; 80053; 84703; 85025; 85610; 86850; 86900; 86901; 86922; 99285-25; C9803; P9058; U0003

== ENCOUNTER 2022-08-10 12:30 | Emergency (ER) | payer OTHER ==
[2022-08-10 12:38] VITALS: RESP 18; BMI 27.9
[2022-08-10] MEDS ORDERED: SODIUM CHLORIDE 0.9% 1000 ML INFUS.BAG IV ONE (14:35)
[2022-08-10] MEDS ORDERED: PROCHLORPERAZINE INJECTION 10 MG/2 ML VIAL IVPB ONE (14:35)
[2022-08-10] MEDS ORDERED: KETOROLAC TROMETHAMINE 30 MG/1 ML VIAL IVPUSH ONE (14:35)
[2022-08-10] MEDS ORDERED: PROCHLORPERAZINE INJECTION 10 MG/2 ML VIAL ONE (14:50)
[2022-08-10] MEDS ORDERED: KETOROLAC TROMETHAMINE 30 MG/1 ML VIAL ONE (14:51)
[2022-08-10 15:50] LABS: BASO % 0.9 % (0-2.0); EOS % 0.7 % (0-4.5); HEMOGLOBIN 13.7 GM/dL (10.7-15.3); LYMPH % 26.6 % (8-40); MCH 26.8 pg (25.7-33.7); MCHC 32.7 g/dl (32.0-36.0); MEAN CELL VOLUME 82.1 fl (80-96); MEAN PLT VOLUME 8.4 fl (7.5-11.1); MONO % 6.8 % (3.8-10.2); PLATELET COUNT 536 10^3/uL (134-434); RBC 5.11 M/mm3 (3.60-5.2); RDW 14.1 % (11.6-15.6)
[2022-08-10 16:11] LABS: CHLORIDE 106 mmol/L (98-107); SODIUM 137 mmol/L (136-145)
[2022-08-10 16:13] LABS: CALCIUM 9.2 mg/dL (8.5-10.1)
[2022-08-10 16:14] LABS: ALBUMIN 3.6 g/dl (3.4-5.0); BLOOD UREA NITROGEN 7.8 mg/dL (7-18); CO2 24 mmol/L (21-32); GLUCOSE,RANDOM 86 mg/dL (74-106)
[2022-08-10 16:17] LABS: CREATININE 0.9 mg/dL (0.55-1.3); SGOT/AST 69 U/L (15-37)
[2022-08-10 16:18] LABS: BILIRUBIN,TOTAL 0.6 mg/dL (0.2-1); TOT PROT 7.4 g/dl (6.4-8.2)
[2022-08-10 16:23] LABS: ALK PHOS 101 U/L (45-117)
[2022-08-10 16:27] LABS: PROTHROMBIN TIME (PATIENT) 11.5 SEC (9.7-13.0)
[2022-08-10 16:39] LABS: ANION GAP 7 MMOL/L (8-16); SGPT/ALT 28 U/L (13-61)
[2022-08-10 17:27] VITALS: BP 100/62; PULSE 87; TEMP 97.5
[2022-08-10 18:05] LABS: CALCIUM 8.8 mg/dL (8.5-10.1)
[2022-08-10 18:06] LABS: BLOOD UREA NITROGEN 7.7 mg/dL (7-18)
[2022-08-10 18:09] LABS: CREATININE 0.7 mg/dL (0.55-1.3)
== END 2022-08-10 19:03 | disposition home or self-care (01) ==
LOC: JER 12:30
PROC: 3E033GC Introduction of Other Therapeutic Substance into Peripheral Vein, Percutaneous Approach (ICD-10-PCS; principal; 2022-08-10)
PROC: 3E0333Z Introduction of Anti-inflammatory into Peripheral Vein, Percutaneous Approach (ICD-10-PCS; 2022-08-10)
PROC: 3E033GC Introduction of Other Therapeutic Substance into Peripheral Vein, Percutaneous Approach (ICD-10-PCS; 2022-08-10)
DX: R51.9 Headache, unspecified (principal)
CPT/HCPCS: 36415; 80048; 80053; 85025; 85610; 85730; 99284-25

== ENCOUNTER 2024-02-20 04:19 | Day surgery (SDC) | payer OTHER ==
[2024-02-17 09:48] VITALS: BMI 26.2
[2024-02-20] MEDS ORDERED: MIDAZOLAM HCL 2 MG/2 ML SINGLE DOSE VIAL ONE (07:12)
[2024-02-20] MEDS ORDERED: PROPOFOL 20 ML ONE ×2 (07:12→07:50)
[2024-02-20] MEDS ORDERED: SUCCINYLCHOLINE CHLORIDE 200 MG/10 ML SYRINGE ONE (07:12)
[2024-02-20] MEDS ORDERED: ONDANSETRON 4 MG/2 ML VIAL ONE ×3 (07:37→08:26)
[2024-02-20] MEDS ORDERED: ACETAMINOPHEN 325 MG TABLET (FP) PO PRN (07:50)
[2024-02-20] MEDS ORDERED: oxyCODONE HCL 5 MG TABLET PO PRN (07:50)
[2024-02-20] MEDS ORDERED: IBUPROFEN 400 MG TABLET (FP) PO PRN (07:50)
[2024-02-20] MEDS ORDERED: LIDOCAINE HCL/PF 2% SDV 5ML VIAL ONE (07:50)
[2024-02-20] MEDS ORDERED: ACETAMINOPHEN INJECTION 100 ML IVPB ONE (08:04)
[2024-02-20] MEDS ORDERED: DEXAMETHASONE SOD PHOSPHATE 4 MG/1 ML VIAL ONE (08:06)
[2024-02-20] MEDS ORDERED: LACTATED RINGERS SOLUTION 1,000 ML IV SCH (08:45)
[2024-02-20] MEDS ORDERED: ONDANSETRON 4 MG/2 ML VIAL IVPUSH PRN (08:45)
[2024-02-20 11:18] VITALS: RESP 16
[2024-02-20 12:04] VITALS: BP 100/62; PULSE 78; TEMP 96.9
== END 2024-02-20 12:05 | disposition home or self-care (01) ==
LOC: JASU-SURG 04:19
PROVIDERS: ATTEND Obstetrics & Gynecology
PROC: 0UBC8ZZ Excision of Cervix, Via Natural or Artificial Opening Endoscopic (ICD-10-PCS; principal; 2024-02-20 07:30)
PROC: 0UB98ZZ Excision of Uterus, Via Natural or Artificial Opening Endoscopic (ICD-10-PCS; 2024-02-20 07:30)
DX: N92.0 Excessive and frequent menstruation with regular cycle (principal); D25.0 Submucous leiomyoma of uterus; N84.1 Polyp of cervix uteri; N85.6 Intrauterine synechiae
CPT/HCPCS: 81025; 88305-TC; 94760; J0131

== ENCOUNTER 2024-06-17 11:22 | Inpatient (IN) | payer OTHER ==
[2024-06-17] MEDS ORDERED: METOCLOPRAMIDE HCL INJECTION 10 MG/2 ML VIAL ONE (12:59)
[2024-06-17] MEDS ORDERED: ACETAMINOPHEN INJECTION 100 ML ONE (13:00)
[2024-06-17 13:06] LABS: BASO % 0.5 % (0-2.0); EOS % 0.8 % (0-4.5); HEMATOCRIT 38.9 % (32.4-45.2); HEMOGLOBIN 12.6 GM/dL (10.7-15.3); LYMPH % 14.1 % (8-40); MCH 25.9 pg (25.7-33.7); MCHC 32.4 g/dl (32.0-36.0); MEAN CELL VOLUME 79.9 fl (80-96); MEAN PLT VOLUME 7.6 fl (7.5-11.1); MONO % 9.7 % (3.8-10.2); NEUT % 74.9 % (42.8-82.8); PLATELET COUNT 605 10^3/uL (134-434); RBC 4.87 M/mm3 (3.60-5.2); RDW 15.5 % (11.6-15.6); WHITE BLOOD COUNT 19.8 K/mm3 (4.0-10.0)
[2024-06-17] MEDS: ACETAMINOPHEN 1000 MG/100 ML BAG IVPB ONE (13:11)
[2024-06-17] MEDS: METOCLOPRAMIDE HCL INJECTION 10 MG/2 ML VIAL IVPB ONE (13:11)
[2024-06-17 13:17] LABS: INR 1.08 (0.83-1.09); PROTHROMBIN TIME (PATIENT) 12.4 SEC (9.7-13.0)
[2024-06-17 13:33] LABS: POTASSIUM 5.5 mmol/L (3.5-5.1)
[2024-06-17 13:34] LABS: CALCIUM 8.8 mg/dL (8.5-10.1)
[2024-06-17 13:36] LABS: ALBUMIN 3.3 g/dl (3.4-5.0); BLOOD UREA NITROGEN 5.2 mg/dL (7-18)
[2024-06-17 13:38] LABS: CREATININE 0.9 mg/dL (0.55-1.3)
[2024-06-17 13:40] LABS: BILIRUBIN,TOTAL 0.6 mg/dL (0.2-1); TOT PROT 6.7 g/dl (6.4-8.2)
[2024-06-17] MEDS ORDERED: MIDAZOLAM HCL 2 MG/2 ML SINGLE DOSE VIAL ONE (14:44)
[2024-06-17] MEDS ORDERED: LIDOCAINE HCL 1%, 10 MG/ML (20ML VIAL) ONE (15:14)
[2024-06-17] MEDS ORDERED: FENTANYL CITRATE/PF 50 MCG/ML VIAL ONE (15:20)
[2024-06-17 16:46] LABS: POTASSIUM 3.9 mmol/L (3.5-5.1)
[2024-06-17 16:48] LABS: CALCIUM 8.5 mg/dL (8.5-10.1)
[2024-06-17 16:50] LABS: BLOOD UREA NITROGEN 5.1 mg/dL (7-18)
[2024-06-17 16:52] LABS: CREATININE 0.7 mg/dL (0.55-1.3)
[2024-06-17 16:53] LABS: BILIRUBIN,TOTAL 0.5 mg/dL (0.2-1)
[2024-06-17] MEDS ORDERED: AZITHROMYCIN IVPB 500 MG/250 ML BAG IVPB SCH (19:15)
[2024-06-17] MEDS: ACETAMINOPHEN 325 MG TABLET (FP) PO PRN (19:57)
[2024-06-17 20:13] VITALS: BMI 27.3
[2024-06-17] MEDS: KETOROLAC TROMETHAMINE 15 MG/ML VIAL IVPUSH ONE (20:28)
[2024-06-17] MEDS: ONDANSETRON 4 MG/2 ML VIAL IVPUSH ONE (20:28)
[2024-06-17] MEDS: SODIUM CHLORIDE 1,000 ML IV SCH (21:32)
[2024-06-17] MEDS: FLUTICASONE PROP 0.05% 16 GM NASAL SPRAY NS SCH (21:37)
[2024-06-18] MEDS: BENZOCAINE/MENTH/CETYLPYRD CL 1 EACH LOZENGE MM PRN (02:09)
[2024-06-18] MEDS: PREGABALIN 100 MG CAPSULE PO PRN (02:09)
[2024-06-18] MEDS ORDERED: AZITHROMYCIN IVPB 500 MG in DEXTROSE 5%-WATER - 250 ML IVPB SCH (10:00)
[2024-06-18] MEDS ORDERED: AZITHROMYCIN IVPB 500 MG/250 ML BAG IVPB SCH (10:00)
[2024-06-18 10:01] LABS: BASO % 0.5 % (0-2.0); EOS % 0.9 % (0-4.5); HEMATOCRIT 33.8 % (32.4-45.2); HEMOGLOBIN 11.4 GM/dL (10.7-15.3); LYMPH % 18.1 % (8-40); MCH 26.2 pg (25.7-33.7); MCHC 33.6 g/dl (32.0-36.0); MEAN CELL VOLUME 78.1 fl (80-96); MONO % 8.7 % (3.8-10.2); NEUT % 71.8 % (42.8-82.8); PLATELET COUNT 587 10^3/uL (134-434); RBC 4.33 M/mm3 (3.60-5.2); RDW 15.8 % (11.6-15.6); WHITE BLOOD COUNT 17.8 K/mm3 (4.0-10.0)
[2024-06-18 10:12] LABS: POTASSIUM 3.8 mmol/L (3.5-5.1)
[2024-06-18] MEDS: VENLAFAXINE HCL 37.5 MG E.R. CAPSULE PO SCH (10:14)
[2024-06-18] MEDS: AZITHROMYCIN IVPB 500 MG/250 ML BAG IVPB SCH (10:14)
[2024-06-18 10:26] LABS: BLOOD UREA NITROGEN 3.9 mg/dL (7-18)
[2024-06-18 10:28] LABS: CREATININE 0.7 mg/dL (0.55-1.3)
[2024-06-18 10:46] LABS: CALCIUM 8.8 mg/dL (8.5-10.1)
[2024-06-18] MEDS: TOPIRAMATE 25 MG TABLET PO SCH (22:05)
[2024-06-18] MEDS: PREGABALIN 100 MG CAPSULE PO SCH (22:05)
[2024-06-19 06:54] VITALS: RESP 18
[2024-06-19] MEDS: VENLAFAXINE HCL 75 MG E.R. CAPSULES PO SCH (11:08)
[2024-06-19 13:13] LABS: BASO % 0.5 % (0-2.0); EOS % 1.9 % (0-4.5); HEMATOCRIT 35.1 % (32.4-45.2); HEMOGLOBIN 11.1 GM/dL (10.7-15.3); LYMPH % 21.2 % (8-40); MCH 25.1 pg (25.7-33.7); MCHC 31.7 g/dl (32.0-36.0); MEAN CELL VOLUME 79.2 fl (80-96); MEAN PLT VOLUME 7.8 fl (7.5-11.1); MONO % 7.3 % (3.8-10.2); NEUT % 69.1 % (42.8-82.8); PLATELET COUNT 624 10^3/uL (134-434); RBC 4.43 M/mm3 (3.60-5.2); RDW 15.9 % (11.6-15.6); WHITE BLOOD COUNT 13.5 K/mm3 (4.0-10.0)
[2024-06-19 13:36] LABS: POTASSIUM 4.1 mmol/L (3.5-5.1)
[2024-06-19 13:38] LABS: CALCIUM 9.3 mg/dL (8.5-10.1)
[2024-06-19 13:39] LABS: ALBUMIN 2.8 g/dl (3.4-5.0); BLOOD UREA NITROGEN 7.9 mg/dL (7-18)
[2024-06-19 13:42] LABS: CREATININE 0.7 mg/dL (0.55-1.3)
[2024-06-19 13:43] LABS: BILIRUBIN,TOTAL 0.2 mg/dL (0.2-1)
[2024-06-19] MEDS: levoFLOXacin 750 MG TABLET PO SCH (16:05)
[2024-06-20] MEDS: levoFLOXacin 750 MG TABLET PO SCH (06:03)
[2024-06-20] MEDS: SODIUM CHLORIDE 0.9% 1000 ML INFUS.BAG IVPB ONE (08:06)
[2024-06-20 08:58] LABS: BASO % 0.7 % (0-2.0); EOS % 1.5 % (0-4.5); HEMATOCRIT 35.7 % (32.4-45.2); HEMOGLOBIN 11.7 GM/dL (10.7-15.3); LYMPH % 25.2 % (8-40); MCH 25.6 pg (25.7-33.7); MCHC 32.8 g/dl (32.0-36.0); MEAN CELL VOLUME 78.1 fl (80-96); MEAN PLT VOLUME 7.7 fl (7.5-11.1); MONO % 6.8 % (3.8-10.2); NEUT % 65.8 % (42.8-82.8); PLATELET COUNT 684 10^3/uL (134-434); RBC 4.57 M/mm3 (3.60-5.2); RDW 16.2 % (11.6-15.6)
[2024-06-20 09:19] LABS: POTASSIUM 4.4 mmol/L (3.5-5.1)
[2024-06-20 09:31] LABS: CALCIUM 9.6 mg/dL (8.5-10.1)
[2024-06-20 09:32] LABS: ALBUMIN 2.9 g/dl (3.4-5.0); BLOOD UREA NITROGEN 8.7 mg/dL (7-18)
[2024-06-20 09:35] LABS: BILIRUBIN,TOTAL 0.2 mg/dL (0.2-1); CREATININE 0.8 mg/dL (0.55-1.3); TOT PROT 6.1 g/dl (6.4-8.2)
[2024-06-20 14:49] VITALS: BP 109/66; PULSE 97; TEMP 97.3
== END 2024-06-20 15:43 | disposition home or self-care (01) | DRG 113 ==
LOC: JER 11:22 → INTOOBSV 16:24 → UNDOADMOB 16:24 → JERBED 16:24 → J7W 18:08 → JERBED 06-18 14:08 → J7W 06-18 14:08 → OBSVTOIN 06-19 10:35
PROVIDERS: ADMIT Student in an Organized Health Care Education/Training Program
DX: J01.90 Acute sinusitis, unspecified (principal); A49.1 Streptococcal infection, unspecified site; G43.909 Migraine, unspecified, not intractable, without status migrainosus
CPT/HCPCS: 0241U-QW; 36415; 70450-TC; 70544-TC; 70551-TC; 71045-TC-FY; 80048; 80053; 82962; 83735; 84703; 85025; 85610; 85730; 87040; 87651; 93005; 93010; 99285-25; G0378; J0131